=== PATIENT | male | born 1950 | race Two or more races ===

== ENCOUNTER 2017-10-01 10:07 | Inpatient (IN) | payer OTHER, MEDICAID ==
[~2017-10-01] VITALS: Ht 175.3 cm; Wt 87.9 kg
[2017-10-01] MEDS ORDERED: ASPirin 81 mg TAB PO ONE (11:15)
[2017-10-01 12:39] LABS: Basophils # (auto) 0.1 uL; Basophils % (auto) 1.4 % (0.0-2.0); Eosinophils # (auto) 0.2 uL; Eosinophils % (auto) 3.5 % (0.0-7.0); Hematocrit 31.4 % (41.0-53.0); Hemoglobin 10.4 g/dL (13.5-17.5); Lymphocytes # (auto) 1.5 uL; Lymphocytes % (auto) 23.8 % (10.0-50.0); Mean Corpuscular Hemoglobin 29.1 pg (28.0-32.0); Mean Corpuscular Hgb Conc. 33.2 g/dL (32.0-36.0); Mean Corpuscular Volume 87.8 fL (80.0-100.0); Monocytes # (auto) 0.4 uL; Monocytes % (auto) 7.2 % (0.0-12.0); Neutrophils # (auto) 3.9 uL; Neutrophils % (auto) 64.1 % (37.0-80.0); Nucleated Red Blood Cells % 0.1 %; Platelet Count (auto) 212 10^3/uL (140-450); Red Blood Cells 3.57 10^6/uL (4.5-5.90); Red Cell Distribution Width 14.2 % (11.8-14.3); White Blood Cell 6.1 10^3/uL (4.4-10.8)
[2017-10-01 12:51] LABS: INR 0.93 (0.9-1.15)
[2017-10-01 13:03] LABS: Alanine Aminotransferase 54 U/L (16-61); Albumin 3.2 g/dL (3.4-5.0); Anion Gap 11 (5-15); Aspartate Aminotransferase 47 U/L (15-37); BUN/Creatinine Ratio 10.5; Blood Urea Nitrogen 48 mg/dL (7-18); Calcium 7.5 mg/dL (8.5-10.1); Carbon Dioxide 23 mmol/L (21-32); Chloride 108 mmol/L (98-107); GFR African American 16 mL/min; GFR Non-African American 14 mL/min; Glucose 113 mg/dL (74-106); Potassium 4.3 mmol/L (3.5-5.1); Sodium 142 mmol/L (136-145)
[2017-10-01 13:08] LABS: Alkaline Phosphatase 59 U/L (45-117); Bilirubin, Total 0.3 mg/dL (0.2-1.0); Total Protein 7.3 g/dL (6.4-8.2)
[2017-10-01] MEDS ORDERED: DEXTROSE (50%) 50ML SYRG IV PRN (16:00)
[2017-10-01] MEDS ORDERED: FUROSEMIDE 20 MG TAB PO ONE (16:00)
[2017-10-01] MEDS ORDERED: POTASSIUM CHLORIDE 8 MEQ TAB PO ONE (16:00)
[2017-10-01] MEDS ORDERED: LORazepam 0.5 MG TAB PO PRN (16:15)
[2017-10-01] MEDS ORDERED: MORPHINE SULF(PF) 0.5MG/ML 10ML VIAL IV PRN ×2 (16:15)
[2017-10-01] MEDS ORDERED: ACETAMINOPHEN 325 MG TAB PO PRN (16:15)
[2017-10-01] MEDS ORDERED: ENALAPRIL MALEATE 2.5 MG TAB PO SCH (16:15)
[2017-10-01] MEDS ORDERED: ONDANSETRON HCL 4 MG/2 ML VIAL IV PRN (16:15)
[2017-10-01] MEDS ORDERED: NITROGLYCERIN 0.4 MG SL TAB SL PRN ×2 (16:15)
[2017-10-01] MEDS ORDERED: FUROSEMIDE 40 MG TAB PO ONE (16:15)
[2017-10-01] MEDS ORDERED: ALUM & MAG HYDROX-SIMETH LIQ(MAALOX) 30 ML PO ONE (16:15)
[2017-10-01] MEDS ORDERED: CLOPIDOGREL BISULFATE 75 MG TAB PO ONE (16:30)
[2017-10-01] MEDS: ACCU-CHEK COMFORT CURVE STRIP VI SCH ×2 (16:58→22:10)
[2017-10-01] MEDS: InsuLIN REG 1unit/0.01ml Soln (100units/ml) SC SCH ×2 (16:58→22:09)
[2017-10-01] MEDS: TAMSULOSIN HYDROCHLORIDE 0.4 MG CAP PO SCH (18:00)
[2017-10-01] MEDS: Boost Glucose Control 8 Ounces PO SCH (18:14)
[2017-10-01] MEDS ORDERED: cloNIDine HCL 0.1 MG TAB PO PRN (19:15)
[2017-10-01 21:00] VITALS: BP 161/83
[2017-10-01 22:00] VITALS: BP 161/83
[2017-10-01] MEDS: SODIUM CHLOR 0.9% PF (SALINE LOCK) 10ML VIAL/SYR IV SCH (22:06)
[2017-10-01] MEDS: hydrALAZINE HCL 25 MG TAB PO SCH (22:07)
[2017-10-01] MEDS: CARVEDILOL 12.5 MG TAB PO SCH (22:07)
[2017-10-01] MEDS: ENALAPRIL MALEATE 2.5 MG TAB PO SCH (22:08)
[2017-10-01] MEDS: ATORVASTATIN 20 MG TAB PO SCH (22:08)
[2017-10-01] MEDS: INSULIN LANTUS (GLARGINE) 1 /0.01ml (100units/ml) SC SCH (22:09)
[2017-10-01] MEDS ORDERED: FURO40TA PO (22:27)
[2017-10-01] MEDS ORDERED: CHOL1TAB28 PO (22:27)
[2017-10-01] MEDS ORDERED: TAMS0.4C36 PO (22:27)
[2017-10-01] MEDS ORDERED: PANT1INJ3 PO (22:27)
[2017-10-01] MEDS ORDERED: INSUINJ18 SC (22:27)
[2017-10-01] MEDS ORDERED: GABA300C PO (22:27)
[2017-10-01] MEDS ORDERED: CHOL200021 PO (22:27)
[2017-10-01] MEDS ORDERED: CAR125T PO (22:27)
[2017-10-01] MEDS ORDERED: ROSU40TA PO (22:27)
[2017-10-01] MEDS ORDERED: AML5T PO (22:27)
[2017-10-01] MEDS ORDERED: INSLANTI SC (22:27)
[2017-10-01] MEDS ORDERED: FINA5TAB4 PO (22:27)
[2017-10-01] MEDS ORDERED: HYDR25TA35 PO (22:27)
[2017-10-02 05:00] VITALS: BP 155/77
[2017-10-02] MEDS: SODIUM CHLOR 0.9% PF (SALINE LOCK) 10ML VIAL/SYR IV SCH ×3 (06:00→21:49)
[2017-10-02] MEDS: InsuLIN REG 1unit/0.01ml Soln (100units/ml) SC SCH ×4 (06:00→21:49)
[2017-10-02] MEDS: ACCU-CHEK COMFORT CURVE STRIP VI SCH ×4 (06:01→21:50)
[2017-10-02 07:04] LABS: Basophils # (auto) 0.1 uL; Eosinophils # (auto) 0.2 uL; Hematocrit 29.9 % (41.0-53.0); Hemoglobin 10.1 g/dL (13.5-17.5); Lymphocytes # (auto) 1.3 uL; Lymphocytes % (auto) 23.1 % (10.0-50.0); Mean Corpuscular Hemoglobin 29.7 pg (28.0-32.0); Mean Corpuscular Hgb Conc. 33.9 g/dL (32.0-36.0); Mean Corpuscular Volume 87.5 fL (80.0-100.0); Monocytes # (auto) 0.5 uL; Neutrophils # (auto) 3.5 uL; Neutrophils % (auto) 62.9 % (37.0-80.0); Nucleated Red Blood Cells % 0.1 %; Platelet Count (auto) 197 10^3/uL (140-450); Red Blood Cells 3.42 10^6/uL (4.5-5.90); Red Cell Distribution Width 14.8 % (11.8-14.3); White Blood Cell 5.5 10^3/uL (4.4-10.8)
[2017-10-02 07:32] LABS: BUN/Creatinine Ratio 10.7; Bilirubin, Total 0.4 mg/dL (0.2-1.0); Calcium 7.8 mg/dL (8.5-10.1); Magnesium 2.3 mg/dL (1.6-2.6); Potassium 4.1 mmol/L (3.5-5.1); Total Protein 6.8 g/dL (6.4-8.2)
[2017-10-02] MEDS ORDERED: ADENOSINE 74 MG in GIVE UN-DILUTED 0 ML IV ONE (08:45)
[2017-10-02 09:00] VITALS: BP 161/79
[2017-10-02] MEDS ORDERED: FUROSEMIDE 20 MG TAB PO SCH (10:00)
[2017-10-02] MEDS: Boost Glucose Control 8 Ounces PO SCH ×3 (12:00→18:25)
[2017-10-02] MEDS: ASPirin 81 mg TAB PO SCH (12:36)
[2017-10-02] MEDS: FUROSEMIDE 40 MG TAB PO SCH (12:36)
[2017-10-02] MEDS: ENALAPRIL MALEATE 2.5 MG TAB PO SCH ×2 (12:36→21:49)
[2017-10-02] MEDS: FINASTERIDE 5 MG TAB PO SCH (12:37)
[2017-10-02] MEDS: CLOPIDOGREL BISULFATE 75 MG TAB PO SCH (12:37)
[2017-10-02] MEDS: POTASSIUM CHLORIDE 8 MEQ TAB PO SCH (12:37)
[2017-10-02] MEDS: CARVEDILOL 12.5 MG TAB PO SCH ×2 (12:37→21:48)
[2017-10-02] MEDS: DOCUSATE SOD 100 MG CAP PO SCH (12:37)
[2017-10-02] MEDS: hydrALAZINE HCL 25 MG TAB PO SCH ×2 (12:38→21:48)
[2017-10-02] MEDS: CHOLECALCIFEROL (VITD3) 1,000 UNIT TAB PO SCH (12:38)
[2017-10-02] MEDS: PANTOPRAZOLE 40 MG TAB PO SCH (12:38)
[2017-10-02] MEDS: GABAPENTIN 300 MG CAP PO SCH (12:38)
[2017-10-02] MEDS: amLODIPine BESYLATE 5 MG TAB PO SCH (12:39)
[2017-10-02 13:00] VITALS: BP 160/77
[2017-10-02 17:00] VITALS: BP 149/70
[2017-10-02] MEDS: TAMSULOSIN HYDROCHLORIDE 0.4 MG CAP PO SCH (18:25)
[2017-10-02 19:36] LABS: Urine Bacteria NONE SEEN /hpf (None Seen); Urine Blood Negative /uL (Negative); Urine Specific Gravity 1.009 (1.001-1.035); Urine WBC 1 /hpf (0 - 3)
[2017-10-02 21:48] VITALS: BP 149/74
[2017-10-02] MEDS: ZOLPIDEM TARTRATE 5 MG TAB PO PRN (21:48)
[2017-10-02] MEDS: ATORVASTATIN 20 MG TAB PO SCH (21:48)
[2017-10-02] MEDS: INSULIN LANTUS (GLARGINE) 1 /0.01ml (100units/ml) SC SCH (21:49)
[2017-10-03 05:36] VITALS: BP 155/76
[2017-10-03] MEDS: SODIUM CHLOR 0.9% PF (SALINE LOCK) 10ML VIAL/SYR IV SCH ×3 (05:51→22:05)
[2017-10-03] MEDS: InsuLIN REG 1unit/0.01ml Soln (100units/ml) SC SCH ×4 (05:51→22:28)
[2017-10-03] MEDS: ACCU-CHEK COMFORT CURVE STRIP VI SCH ×4 (05:51→22:29)
[2017-10-03 08:00] VITALS: BP 177/78
[2017-10-03] MEDS: Boost Glucose Control 8 Ounces PO SCH ×3 (08:00→18:00)
[2017-10-03] MEDS: DOCUSATE SOD 100 MG CAP PO SCH (09:23)
[2017-10-03] MEDS: CLOPIDOGREL BISULFATE 75 MG TAB PO SCH (09:23)
[2017-10-03] MEDS: POTASSIUM CHLORIDE 8 MEQ TAB PO SCH (09:23)
[2017-10-03] MEDS: ASPirin 81 mg TAB PO SCH (09:23)
[2017-10-03] MEDS: GABAPENTIN 300 MG CAP PO SCH (09:24)
[2017-10-03] MEDS: FUROSEMIDE 40 MG TAB PO SCH (09:24)
[2017-10-03] MEDS: PANTOPRAZOLE 40 MG TAB PO SCH (09:24)
[2017-10-03] MEDS: CHOLECALCIFEROL (VITD3) 1,000 UNIT TAB PO SCH (09:24)
[2017-10-03] MEDS: ENALAPRIL MALEATE 2.5 MG TAB PO SCH (09:25)
[2017-10-03] MEDS: amLODIPine BESYLATE 5 MG TAB PO SCH (09:25)
[2017-10-03] MEDS: CARVEDILOL 12.5 MG TAB PO SCH ×2 (09:25→21:39)
[2017-10-03] MEDS: hydrALAZINE HCL 25 MG TAB PO SCH ×3 (09:26→21:39)
[2017-10-03] MEDS: FINASTERIDE 5 MG TAB PO SCH (09:26)
[2017-10-03 12:00] VITALS: BP 151/69
[2017-10-03 17:00] VITALS: BP 153/78
[2017-10-03] MEDS: TAMSULOSIN HYDROCHLORIDE 0.4 MG CAP PO SCH (17:25)
[2017-10-03] MEDS: ATORVASTATIN 20 MG TAB PO SCH (21:39)
[2017-10-03 22:00] VITALS: BP 163/78
[2017-10-03] MEDS: ZOLPIDEM TARTRATE 5 MG TAB PO PRN (22:08)
[2017-10-03] MEDS: INSULIN LANTUS (GLARGINE) 1 /0.01ml (100units/ml) SC SCH (22:29)
[2017-10-04] MEDS: SODIUM CHLOR 0.9% PF (SALINE LOCK) 10ML VIAL/SYR IV SCH ×2 (05:40→14:00)
[2017-10-04] MEDS: hydrALAZINE HCL 25 MG TAB PO SCH ×2 (05:42→15:07)
[2017-10-04] MEDS: ACCU-CHEK COMFORT CURVE STRIP VI SCH ×3 (05:47→17:00)
[2017-10-04] MEDS: InsuLIN REG 1unit/0.01ml Soln (100units/ml) SC SCH ×3 (05:47→17:00)
[2017-10-04 05:51] VITALS: BP 137/67
[2017-10-04 08:00] VITALS: BP 143/70
[2017-10-04] MEDS: Boost Glucose Control 8 Ounces PO SCH ×2 (08:00→12:00)
[2017-10-04 08:43] VITALS: BP 143/70
[2017-10-04] MEDS: CARVEDILOL 12.5 MG TAB PO SCH (09:35)
[2017-10-04] MEDS: GABAPENTIN 300 MG CAP PO SCH (09:35)
[2017-10-04] MEDS: DOCUSATE SOD 100 MG CAP PO SCH (09:35)
[2017-10-04] MEDS: PANTOPRAZOLE 40 MG TAB PO SCH (09:35)
[2017-10-04] MEDS: CLOPIDOGREL BISULFATE 75 MG TAB PO SCH (09:35)
[2017-10-04] MEDS: POTASSIUM CHLORIDE 8 MEQ TAB PO SCH (09:36)
[2017-10-04] MEDS: FINASTERIDE 5 MG TAB PO SCH (09:36)
[2017-10-04] MEDS: amLODIPine BESYLATE 5 MG TAB PO SCH (09:36)
[2017-10-04] MEDS: FUROSEMIDE 40 MG TAB PO SCH (09:36)
[2017-10-04] MEDS: ASPirin 81 mg TAB PO SCH (09:36)
[2017-10-04] MEDS: CHOLECALCIFEROL (VITD3) 1,000 UNIT TAB PO SCH (09:36)
[2017-10-04 13:00] VITALS: BP 142/72
[2017-10-04 15:47] VITALS: BP 142/72
[2017-10-04 16:17] VITALS: BP 139/79
[2017-10-04] MEDS ORDERED: TAMSULOSIN HYDROCHLORIDE 0.4 MG CAP PO SCH (18:00)
== END 2017-10-04 17:15 | disposition home or self-care (01) | DRG 291 ==
LOC: ER 10:07 → TELE 10:08 → TELE-CENTR 19:54
PROVIDERS: ADMIT Internal Medicine; ATTEND Internal Medicine Pulmonary Disease
DX: I13.2 Hypertensive heart and chronic kidney disease with heart failure and with stage 5 chronic kidney disease, or end stage renal disease (principal); I50.43 Acute on chronic combined systolic (congestive) and diastolic (congestive) heart failure; I24.9 Acute ischemic heart disease, unspecified; E44.0 Moderate protein-calorie malnutrition; N18.5 Chronic kidney disease, stage 5; J98.11 Atelectasis; N13.8 Other obstructive and reflux uropathy; R65.10 Systemic inflammatory response syndrome (SIRS) of non-infectious origin without acute organ dysfunction; E83.51 Hypocalcemia; N40.1 Benign prostatic hyperplasia with lower urinary tract symptoms; I25.10 Atherosclerotic heart disease of native coronary artery without angina pectoris; D63.8 Anemia in other chronic diseases classified elsewhere; E11.21 Type 2 diabetes mellitus with diabetic nephropathy; E11.22 Type 2 diabetes mellitus with diabetic chronic kidney disease; I25.2 Old myocardial infarction; Z82.49 Family history of ischemic heart disease and other diseases of the circulatory system; Z83.3 Family history of diabetes mellitus; Z90.49 Acquired absence of other specified parts of digestive tract; Z88.5 Allergy status to narcotic agent; Z88.2 Allergy status to sulfonamides; Z79.4 Long term (current) use of insulin; Z79.899 Other long term (current) drug therapy; Z68.28 Body mass index [BMI] 28.0-28.9, adult
CPT/HCPCS: 36415; 71046; 76775; 78452; 80053; 80061; 81001; 82962; 83036; 83735; 83880; 84443; 84484; 85025; 85610; 85730; 93005; 93017; 93306; J0153; J1815

== ENCOUNTER 2018-08-31 20:43 | Emergency (ER) | payer OTHER, MEDICAID ==
[~2018-08-31] VITALS: Ht 182.9 cm; Wt 113.4 kg
[~2018-08-31 20:43] MED LIST: AML5T PO; CAR125T PO; CHOL1TAB28 PO; CHOL200021 PO; FINA5TAB4 PO; FURO40TA PO; GABA300C PO; HYDR-4296 PO; INSLANTI SC; INSUINJ18 SC; PANT1INJ3 PO; ROSU40TA PO; TAMS0.4C36 PO
[2018-08-31] MEDS ORDERED: SODIUM CHLORIDE 0.9% 250 ML IV ONE (21:21)
[2018-08-31 21:47] LABS: Basophils # (auto) 0.1 uL; Basophils % (auto) 0.7 % (0.0-2.0); Eosinophils # (auto) 0.1 uL; Eosinophils % (auto) 0.7 % (0.0-7.0); Hematocrit 33.9 % (41.0-53.0); Hemoglobin 11.2 g/dL (13.5-17.5); Lymphocytes # (auto) 0.8 uL; Mean Corpuscular Hemoglobin 32.3 pg (28.0-32.0); Mean Corpuscular Volume 97.9 fL (80.0-100.0); Monocytes # (auto) 0.4 uL; Monocytes % (auto) 3.9 % (0.0-12.0); Neutrophils # (auto) 7.9 uL; Neutrophils % (auto) 85.7 % (37.0-80.0); Platelet Count (auto) 209 10^3/uL (140-450); Red Blood Cells 3.46 10^6/uL (4.5-5.90); Red Cell Distribution Width 13.6 % (11.8-14.3); White Blood Cell 9.2 10^3/uL (4.4-10.8)
[2018-08-31 22:06] LABS: Anion Gap 12 (5-15); Blood Urea Nitrogen 56 mg/dL (7-18); Calcium 8.8 mg/dL (8.5-10.1); Carbon Dioxide 24 mmol/L (21-32); Chloride 103 mmol/L (98-107); Glucose 199 mg/dL (74-106); Potassium 4.1 mmol/L (3.5-5.1); Sodium 139 mmol/L (136-145)
[2018-08-31 22:09] LABS: Alanine Aminotransferase 22 U/L (16-61); Aspartate Aminotransferase 21 U/L (15-37); BUN/Creatinine Ratio 8.6; GFR African American 11 mL/min; GFR Non-African American 9 mL/min
[2018-08-31 22:13] LABS: Alkaline Phosphatase 65 U/L (45-117); Bilirubin, Total 0.3 mg/dL (0.2-1.0); Total Protein 8.8 g/dL (6.4-8.2)
[2018-08-31 23:43] VITALS: BP 194/91
[2018-09-01] MEDS ORDERED: LACTULOSE 20Gm/30ML SOLN PO ONE
[2018-09-01] MEDS ORDERED: cloNIDine 0.1 mg/24hr 7 DAY PATCH TD ONE
[2018-09-01] MEDS ORDERED: cloNIDine HCL 0.1 MG TAB PO ONE ×2 (00:15→01:30)
== END 2018-09-01 01:38 | disposition home or self-care (01) ==
LOC: ER 20:43 → EDBD 20:43 → ER 09-01 01:38
DX: E16.2 Hypoglycemia, unspecified (principal); N28.9 Disorder of kidney and ureter, unspecified; E11.22 Type 2 diabetes mellitus with diabetic chronic kidney disease; I13.2 Hypertensive heart and chronic kidney disease with heart failure and with stage 5 chronic kidney disease, or end stage renal disease; N18.6 End stage renal disease; I50.9 Heart failure, unspecified; I25.10 Atherosclerotic heart disease of native coronary artery without angina pectoris; Z99.2 Dependence on renal dialysis; Z88.5 Allergy status to narcotic agent; Z88.2 Allergy status to sulfonamides; Z79.4 Long term (current) use of insulin; Z90.49 Acquired absence of other specified parts of digestive tract
CPT/HCPCS: 36415; 70450; 71045; 80053; 82140; 82962; 83880; 84484; 85025; 94761; 96360; 99284; J7050

== ENCOUNTER 2024-03-06 19:55 | Inpatient (IN) | payer MEDICAID, OTHER ==
[~2024-03-06] VITALS: Ht 175.3 cm; Wt 74.6 kg
[~2024-03-06 19:55] MED LIST changes: +FURO1TAB31 PO; -FURO40TA PO; -HYDR-4296 PO; +HYDR25TA88 PO; -ROSU40TA PO; +ROSU40TA81 PO; -TAMS0.4C36 PO; +TAMS0.4C39 PO
[2024-03-06 20:15] VITALS: PULSE 74; RESP 14; O2SAT 96
[2024-03-06] MEDS: ACETAMINOPHEN 500 MG TAB PO ONE (20:15)
[2024-03-06] MEDS: SODIUM CHLORIDE 0.9% 1,000 ML IVB ONE (20:15)
[2024-03-06] MEDS: cefTRIAXone 1GM/50ML D5W 50 ML IV ONE (20:15)
--- NOTE | 2024-03-06 20:22 | ED.PDOC ---
General HPI Comments 73-year-old male who came to ER via EMS for urinary problems. Patient does have history of hypertension, diabetes, end-stage renal disease, on dialysis every Sunday and Sunday. He does have a suprapubic catheter inserted nearly a year ago due to prostatic enlargement. Does have history of recurrent UTIs. For the past few days, patient has been complaining of suprapubic pain, near the suprapubic catheter insertion site. No fever noted. No nausea or vomiting. No flank pains. Patient said that he might be having another UTI. Chief Complaint: Urinary Time Seen by MD: 20:18 Primary Care Provider: UNKNOWN Reviewed notes: Nurses Notes, [employer] As[employer]er Notes Allergies: Coded Allergies: Codeine (Verified Allergy, Unknown, 03/06/24) upset stomach/rash Sulfa Antibiotics (Verified Allergy, Unknown, 10/01/17) Home Meds Reported Medications Insulin Aspart Protamine & Asp (Novolog Mix 70/30 Prefill (70-30) 100 Unit/ml) 1 Inj Inj, 8 UNITS SC, INJ 10/01/17 Insulin Glargine (Lantus) 100 Unit/Ml Inj, 50 UNIT SC QHS, INJ 10/01/17 Furosemide (Lasix) 40 Mg Tab, 40 MG PO DAILY, TAB 10/01/17 Hydralazine Hcl (Hydralazine Hcl) 25 Mg Tab, 25 MG PO BID for 30 Days, MG 10/01/17 Pantoprazole Sodium (PANTOPRAZOLE SODIUM) 40 Mg Inj, 40 MG PO DAILY, INJ 10/01/17 Rosuvastatin Calcium (Crestor) 40 Mg Tab, 1 TAB PO DAILY, #30 TAB 5 Refills 10/01/17 Cholecalciferol (D3 2000) 2,000 Unit Tab, 2000 UNIT PO DAILY, TAB 10/01/17 Cholecalciferol (D3) 2,000 Unit Tab, 2000 UNIT PO, TAB 10/01/17 Finasteride (Finasteride) 5 Mg Tab, 5 MG PO DAILY for 30 Days, MG 10/01/17 Tamsulosin Hcl (Tamsulosin Hcl) 0.4 Mg Cap, 0.8 MG PO QPM for 30 Days, MG 10/01/17 Gabapentin (Neurontin) 300 Mg Cap, 1 CAP PO TID, #90 CAP 3 Refills 10/01/17 Carvedilol (Coreg) 12.5 Mg Tab, 1 TAB PO BID, #180 TAB 1 Refill 10/01/17 Amlodipine Besylate (NORVASC TABLET) 5 Mg Tb, 2 TAB PO DAILY, #30 TAB 5 Refills 10/01/17 Information Source: Patient, Emergency Med Personnel Mode of Arrival: EMS Inability to void: None Timing: Days Duration: Intermittent Has not urinated for: Minutes Onset: Spontaneous Symptoms: Other (Abdominal pain) History of: UTI, Suprapubic catheter Location: Suprapubic associated signs and symptoms: Abdominal Pain Past Medical History PAST MEDICAL HISTORY: Anemia, CAD, CHF, DM, ESRD, HTN Past Medical History (Other): Prostatic hypertrophy Surgical History: Appendectomy, Cholecystectomy Surgical History (Other): Dialysis Sunday Family History Family History: Reviewed,noncontributory to illness Social History Smoker: Non-Smoker Alcohol: Denies ETOH Use Drugs: Denies Drug Use Lives In: Home Constitutional: denies: chills, diaphoresis, fatigue, fever, malaise, sweats, weakness, others EENTM: denies: blurred vision, double vision, ear bleeding, ear discharge, ear drainage, ear pain, ear ringing, eye pain, eye redness, hearing loss, mouth pain, mouth swelling, nasal discharge, nose bleeding, nose congestion, nose pain, photophobia, tearing, throat pain, throat swelling, voice changes, others Respiratory: denies: cough, hemoptysis, orthopnea, SOB at rest, shortness of breath, SOB with excertion, stridor, wheezing, others Cardiovascular: denies: chest pain, dizzy spells, diaphoresis, Dyspnea on exertion, edema, irregular heart beat, left arm pain, lightheadedness, palpitations, PND, syncope, others Gastrointestinal: reports: abdominal pain; denies: abdomen distended, blood streaked bowels, constipated, diarrhea, dysphagia, difficulty swallowing, hematemesis, melena, nausea, poor appetite, poor fluid intake, rectal bleeding, rectal pain, vomiting, others Genitourinary: denies: burning, dysuria, flank pain, frequency, hematuria, incontinence, penile discharge, penile sore, pain, testicle pain, testicle swelling, urgency, others Neurological: denies: dizziness, fainting, headache, left sided numbness, left sided weakness, numbness, paresthesia, pre-existing deficit, right sided numbness, right sided weakness, seizure, speech problems, tingling, tremors, weakness, others Musculoskeletal: denies: back pain, gout, joint pain, joint swelling, muscle pain, muscle stiffness, neck pain, others Integumetry: denies: bruises, change in color, change in hair/nails, dryness, laceration, lesions, lumps, rash, wounds, others Allergic/Immunocompromised: denies: Difficulty Healing, Frequent Infections, Hives, Itching, others Hematologic/Lymphatic: denies: anemia, blood clots, easy bleeding, easy bruising, swollen glands, others Endocrine: denies: excessive hunger, excessive sweating, excessive thirst, excessive urination, flushing, intolerance to cold, intolerance to heat, unexplained weight gain, unexplained weight loss, others Psychiatric: denies: anxiety, bipolar disorder, depression, hopeless, panic disorder, schizophrenia, sleepless, suicidal, others Physical Exam General Appearance: No Apparent Distress, Normal HEENT: Normal ENT Inspection, Pharynx Normal, TMs Normal Neck: Full Range of Motion, Non-Tender, Normal, Normal Inspection Respiratory: Chest Non-Tender, Lungs Clear, No Accessory Muscle Use, No Respiratory Distress, Normal Breath Sounds Cardiovascular: No Edema, No JVD, No Murmur, No Gallop, Normal Peripheral Pulses, Regular Rate/Rhythm Breast Exam: Deferred Gastrointestinal: No Organomegaly, Non Tender, No Pulsatile Mass, Normal Bowel Sounds, Soft Genitalia: Deferred Pelvic: Deferred Rectal: Deferred Extremities: No calf tenderness, Normal capillary refill, Normal inspection, Normal range of motion, Non-tender, No pedal edema Musculoskeletal : Apperance: Normal Neurologic: Alert, painter ordnance II-XII nml as Tested, No Motor Deficits, Normal Affect, Normal Mood, No Sensory Deficits Cerebellar Function: Normal Reflexes: Normal Skin: Dry, Normal Color, Warm Lymphatic: No Adenopathy Was a procedure done? Was a procedure done?: No Differential Diagnosis Kidney stone (Female): N/A Kidney stone (Male): Pyelonephritis, Renal failure, Strain, Urinary obstruction, Urolithiasis, Renal infarction, Urinary tract infection Urinary Problem (Male): Prostatitis, Post op Complications, Urethritis, Urolithiasis, UTI X-Ray, Labs, Meds, VS Vital Signs Date Time Temp Pulse Resp B/P (MAP) Pulse Ox O2 Delivery O2 Flow Rate FiO2 03/06/24 22:15 99.2 03/06/24 20:21 99.7 114 14 123/67 (85) 95 03/06/24 20:15 99.9 Lab Test 03/06/24 20:30 Range/Units White Blood Count 8.8 4.4-10.8 10^3/uL Red Blood Count 3.86 L 4.5-5.90 10^6/uL Hemoglobin 12.3 L 13.5-17.5 g/dL Hematocrit 37.2 L 41.0-53.0 % Mean Corpuscular Volume 96.4 80.0-100.0 fL Mean Corpuscular Hemoglobin 31.9 28.0-32.0 pg Mean Corpuscular Hemoglobin Concent 33.1 32.0-36.0 g/dL Red Cell Distribution Width 13.8 11.8-14.3 % Platelet Count 219 140-450 10^3/uL Mean Platelet Volume 7.1 6.9-10.8 fL Neutrophils (%) (Auto) 79.5 37.0-80.0 % Lymphocytes (%) (Auto) 10.9 10.0-50.0 % Monocytes (%) (Auto) 8.4 0.0-12.0 % Eosinophils (%) (Auto) 0.4 0.0-7.0 % Basophils (%) (Auto) 0.8 0.0-2.0 % Neutrophils # (Auto) 7.0 1.6-8.6 10 ^3/uL Lymphocytes # (Auto) 1.0 0.4-5.4 10 ^3/uL Monocytes # (Auto) 0.7 0-1.3 10 ^3/uL Eosinophils # (Auto) 0 0-0.8 10 ^3/uL Basophils # (Auto) 0.1 0-0.2 10 ^3/uL Nucleated Red Blood Cells 0.0 % Sodium Level 136 136-145 mmol/L Potassium Level 4.1 3.5-5.1 mmol/L Chloride Level 96 L 98-107 mmol/L Carbon Dioxide Level 30 20-31 mmol/L Anion Gap 10 5-15 Blood Urea Nitrogen 38 H 9-23 mg/dL Creatinine 7.48 H 0.700-1.30 mg/dL Glomerular Filtration Rate Calc 7 >90 mL/min BUN/Creatinine Ratio 5.1 L 10.0-20.0 Serum Glucose 165 H 74-106 mg/dL Lactic Acid Level 1.4 0.4-2.0 mmol/L Calcium Level 9.3 8.7-10.4 mg/dL Total Bilirubin 0.5 0.2-1.0 mg/dL Aspartate Amino Transferase (AST) 15 13-40 U/L Alanine Aminotransferase (ALT) 13 7-40 U/L Alkaline Phosphatase 128 H 46-116 U/L Total Protein 8.5 H 5.7-8.2 g/dL Albumin 4.6 3.2-4.8 g/dL Current Medications Medications (Trade) Dose Ordered Sig/Pia Route Start Time Stop Time Status Last Admin Sodium Chloride 1,000 ml @ 1,000 mls/hr Q1H ONCE IVB 03/06/24 20:15 03/06/24 21:14 DC 03/06/24 20:15 Acetaminophen (Tylenol Tablet) 1,000 mg ONCE ONCE PO 03/06/24 20:15 03/06/24 20:16 DC 03/06/24 20:15 Ceftriaxone Sodium 50 ml @ 100 mls/hr ONCE ONCE IV 03/06/24 20:15 03/06/24 20:44 DC 03/06/24 20:15 Exam: CT CT AB PEL WO CON-NO ORAL OR IV Findings: Lungs: The lung bases are clear. Heart: The visualized heart is unremarkable. No cardiomegaly or pericardial effusion. Severe coronary atherosclerosis versus stents. Liver: Unremarkable. Gallbladder: Cholecystectomy. Spleen: Unremarkable Pancreas: Unremarkable Adrenals: Unremarkable Kidneys: Bilateral renal atrophy. GI tract: Unremarkable. Moderate fecal burden. : Urinary bladder is decompressed via suprapubic catheter. Vasculature: Mild aortoiliac atherosclerosis. Lymphadenopathy: Absent Peritoneum: No ascites Musculoskeletal: Mild multilevel degenerative changes of the thoracolumbar spine. Left total hip arthroplasty. Soft tissues: Unremarkable Impression: 1. No acute abdominopelvic abnormalities. 2. Moderate fecal burden. 3. Urinary bladder is decompressed via suprapubic catheter. Time of 1ST Reevaluation: 20:13 Reevaluation 1ST: Unchanged Patient Education/Counseling: Diagnosis, Treatment Family Education/Counseling: No Family Present Departure 1 Departure Time of Disposition: 22:00 Impression: Primary Impression: UTI (urinary tract infection) due to urinary indwelling catheter Additional Impression: Pyelonephritis Disposition: ADMITTED INPATIENT Admit to: Med Surg Condition: Stable Critical Care Note Critical Care Time?: No Stability Stability form required: No Heart Score Heart Score: Heart Score Response (Comments) Value History N/A 0 EKG N/A 0 Age N/A 0 Risk Factors N/A 0 Troponin N/A 0 Total 0 I personally scribed for JAMEY GARBER MD ([email or web address]) on 03/06/24 at 20:22. Electronically submitted by Cas Schofield ([email or web address]). I personally scribed for JAMEY GARBER MD ([email or web address]) on 03/06/24 at 21:40. Electronically submitted by Cas Schofield ([email or web address]). JAMEY GARBER MD Mar 06, 2024 20:22
[2024-03-06 20:41] LABS: Basophils # (auto) 0.1 10 ^3/uL (0-0.2); Basophils % (auto) 0.8 % (0.0-2.0); Eosinophils # (auto) 0 10 ^3/uL (0-0.8); Eosinophils % (auto) 0.4 % (0.0-7.0); Hematocrit 37.2 % (41.0-53.0); Hemoglobin 12.3 g/dL (13.5-17.5); Lymphocytes % (auto) 10.9 % (10.0-50.0); Mean Corpuscular Hemoglobin 31.9 pg (28.0-32.0); Mean Corpuscular Hgb Conc. 33.1 g/dL (32.0-36.0); Mean Corpuscular Volume 96.4 fL (80.0-100.0); Monocytes # (auto) 0.7 10 ^3/uL (0-1.3); Monocytes % (auto) 8.4 % (0.0-12.0); Neutrophils % (auto) 79.5 % (37.0-80.0); Platelet Count (auto) 219 10^3/uL (140-450); Red Blood Cells 3.86 10^6/uL (4.5-5.90); Red Cell Distribution Width 13.8 % (11.8-14.3); White Blood Cell 8.8 10^3/uL (4.4-10.8)
[2024-03-06 20:56] LABS: Alanine Aminotransferase 13 U/L (7-40); Albumin 4.6 g/dL (3.2-4.8); Alkaline Phosphatase 128 U/L (46-116); Anion Gap 10 (5-15); Aspartate Aminotransferase 15 U/L (13-40); BUN/Creatinine Ratio 5.1 (10.0-20.0); Bilirubin, Total 0.5 mg/dL (0.2-1.0); Blood Urea Nitrogen 38 mg/dL (9-23); Calcium 9.3 mg/dL (8.7-10.4); Carbon Dioxide 30 mmol/L (20-31); Chloride 96 mmol/L (98-107); Glucose 165 mg/dL (74-106); Potassium 4.1 mmol/L (3.5-5.1); Sodium 136 mmol/L (136-145); Total Protein 8.5 g/dL (5.7-8.2)
--- NOTE | 2024-03-06 21:30 | DVH ---
Exam: CT CT AB PEL WO CON-NO ORAL OR IV History: renal disease, low abd pain, fever, suprapubic cath Comparison Study: None TECHNIQUE: Multidetector CT of the abdomen and pelvis was performed from lung bases to pubic symphysi s. Imaging was performed without IV contrast. Axial, coronal, and sagittal multiplanar reformats were obtained from the axial data set by the technologist. RADIATION DOSE: DLP 902.66 mGy.cm; CTDI vol 14.86 mGy. Findings: Lungs: The lung bases are clear. Heart: The visualized heart is unremarkable. No cardiomegaly or pericardial effusion. Severe coronary atherosclerosis versus stents. Liver: Unremarkable. Gallbladder: Cholecystectomy. Spleen: Unremarkable Pancreas: Unremarkable Adrenals: Unremarkable Kidneys: Bilateral renal atrophy. GI tract: Unremarkable. Moderate fecal burden. : Urinary bladder is decompressed via suprapubic catheter. Vasculature: Mild aortoiliac atherosclerosis. Lymphadenopathy: Absent Peritoneum: No ascites Musculoskeletal: Mild multilevel degenerative changes of the thoracolumbar spine. Left total hip arth roplasty. Soft tissues: Unremarkable Impression: 1. No acute abdominopelvic abnormalities. 2. Moderate fecal burden. 3. Urinary bladder is decompressed via suprapubic catheter.
--- NOTE | 2024-03-06 22:37 | DVHHPRES ---
History of Present Illness Resident Creating Document: LALI SANCHEZ RESIDENT History of Present Illness Patient is 73 years old male with past medical history of hypertension, diabetes mellitus type 2, ESRD on hemodialysis Sunday//Sunday it 3 times a week, anemia of chronic disease, history of recurrent UTI, BEP on suprapubic catheter for last 1 year came with a complaint of suprapubic pain for last 2 days. Patient reported having pain in the suprapubic region for 2 days, crampy, intermittent in nature, 7/10, no radiation. Patient also reported having constipation for last 3 days. Patient denied any fever, acute joint pain or swelling, chest pain or shortness of breath, dysarthria, dizziness, palpitation. Patient is seen in went to [facility] changes suprapubic catheter on February 25. Initial lab workup revealed serum creatinine 7.48, GFR 7, serum glucose 165, alkaline phosphatase 128. Urinalysis revealed leukocyte esterase 3+, WBC 133, , RBC 92, bacteria many. Other blood work was nonsignificant. CT scan of the abdomen revealed moderate fecal burden, urinary bladder decompressed by the suprapubic catheter. Past Medical History hypertension, diabetes mellitus type 2, ESRD on hemodialysis Sunday//Sunday it 3 times a week, anemia of chronic disease, history of recurrent UTI, BEP on suprapubic catheter for last 1 year Past Surgical History Placement of suprapubic catheter 1 year before Past Social History Patient lives alone, denies alcoholism or/smoking/drug abuse, lives alone in his RV house Review of Systems Review of Systems Allergy-codeine, sulfa antibiotic Patient was seen today at the bedside. Patient suprapubic pain Cardiovascular- deny acute chest pain or shortness of breath or cough or pal pitation Respiratory- denies cough or short of breath or wheezing Gastrointestinal- denies any rectal bleeding, nausea or vomiting Musculoskeletal-denies acute joint swelling or tenderness or redness Neurological- denies acute dysarthria, dysphagia, change in vision Psychiatry- denies depression or SI or HI Skin- denies acute rash or purpura Allergies: Coded Allergies: Codeine (Verified Allergy, Unknown, 03/06/24) upset stomach/rash Sulfa Antibiotics (Verified Allergy, Unknown, 10/01/17) Exam Vital Signs Vital Signs Date Time Temp Pulse Resp B/P (MAP) Pulse Ox O2 Delivery O2 Flow Rate FiO2 03/06/24 20:21 99.7 114 14 123/67 (85) 95 Exam General examination- awake, alert, oriented HEENT- PEERLA, no acute nasal discharge Cardiovascular- S1-S2 audible, rate and rhythm regular, no murmur Respiratory- CTAB, no wheeze or rhonchi Abdomen-suprapubic tenderness++, suprapubic catheter, bowel sound+. Nondistended Musculoskeletal-no acute joint swelling or tenderness or redness# Lower extremity- no leg edema Neurological- cranial nerves intact, no acute dysarthria or dysphagia Psychiatry- denies depression or SI or HI Skin- no acute rash or purpura Labs/Xrays Labs Test 03/06/24 20:30 Range/Units White Blood Count 8.8 4.4-10.8 10^3/uL Red Blood Count 3.86 L 4.5-5.90 10^6/uL Hemoglobin 12.3 L 13.5-17.5 g/dL Hematocrit 37.2 L 41.0-53.0 % Mean Corpuscular Volume 96.4 80.0-100.0 fL Mean Corpuscular Hemoglobin 31.9 28.0-32.0 pg Mean Corpuscular Hemoglobin Concent 33.1 32.0-36.0 g/dL Red Cell Distribution Width 13.8 11.8-14.3 % Platelet Count 219 140-450 10^3/uL Mean Platelet Volume 7.1 6.9-10.8 fL Neutrophils (%) (Auto) 79.5 37.0-80.0 % Lymphocytes (%) (Auto) 10.9 10.0-50.0 % Monocytes (%) (Auto) 8.4 0.0-12.0 % Eosinophils (%) (Auto) 0.4 0.0-7.0 % Basophils (%) (Auto) 0.8 0.0-2.0 % Neutrophils # (Auto) 7.0 1.6-8.6 10 ^3/uL Lymphocytes # (Auto) 1.0 0.4-5.4 10 ^3/uL Monocytes # (Auto) 0.7 0-1.3 10 ^3/uL Eosinophils # (Auto) 0 0-0.8 10 ^3/uL Basophils # (Auto) 0.1 0-0.2 10 ^3/uL Nucleated Red Blood Cells 0.0 % Sodium Level 136 136-145 mmol/L Potassium Level 4.1 3.5-5.1 mmol/L Chloride Level 96 L 98-107 mmol/L Carbon Dioxide Level 30 20-31 mmol/L Anion Gap 10 5-15 Blood Urea Nitrogen 38 H 9-23 mg/dL Creatinine 7.48 H 0.700-1.30 mg/dL Glomerular Filtration Rate Calc 7 >90 mL/min BUN/Creatinine Ratio 5.1 L 10.0-20.0 Serum Glucose 165 H 74-106 mg/dL Lactic Acid Level 1.4 0.4-2.0 mmol/L Calcium Level 9.3 8.7-10.4 mg/dL Total Bilirubin 0.5 0.2-1.0 mg/dL Aspartate Amino Transferase (AST) 15 13-40 U/L Alanine Aminotransferase (ALT) 13 7-40 U/L Alkaline Phosphatase 128 H 46-116 U/L Total Protein 8.5 H 5.7-8.2 g/dL Albumin 4.6 3.2-4.8 g/dL Assessment/Plan Assessment/Plan # suprapubic pain likely due to UTI -patient's history of recurrent UTI -patient with a suprapubic catheter for last 1 year -catheter was recently changed at [facility] on February 25 -serum creatinine 7.48, GFR 7, serum glucose 165, alkaline phosphatase 128. -Urinalysis revealed leukocyte esterase 3+, WBC 133, , RBC 92, bacteria many. - . CT scan of the abdomen revealed moderate fecal burden, urinary bladder decompressed by the suprapubic catheter. -continue ceftriaxone 1 g IV daily -pending uterine culture #Suprapubic pain likely due to UTI -patient's history of recurrent UTI -patient with a suprapubic catheter for last 1 year -Urinalysis revealed leukocyte esterase 3+, WBC 133, , RBC 92, bacteria many. -continue ceftriaxone 1 g IV daily -pending uterine culture # ESRD, on hemodialysis 3 times a week, Sunday//Sunday --serum creatinine 7.48, GFR 7, -continue hemodialysis as per schedule #Hypertention -continue amlodipine 10 mg p.o. daily -continue hydralazine 25 mg p.o. b.i.d. -continue hydralazine 10 mg q.6h p.r.n. -continue Lasix 40 mg p.o. daily #DM2 -c/w insulin sliding scale -monitor blood sugar # BPH -continue with the suprapubic catheter -continue Flomax 0.4 mg p.o. q.d. -continue finasteride 5 mg p.o. daily Goals of care/advance care planning; FULL CODE; discussed with the patient >15 minutes PUD prophylaxis: Pantoprazole DVT prophylaxis: Heparin 5000 units subcutaneously b.i.d. Plan discussed with Dr. Bashir, nursing staff, patient Total time spent on patient evaluation, chart review, assessment and plan, discussion discussion >30 minutes Plan discussed with: Patient Plan discussed with: Patient, Other (RN) My Orders Orders - LALI SANCHEZ RESIDENT Procedure Category Date Status Time Admit ADMIT 03/06/24 Transmitted 22:31 Code Status CODE 03/06/24 Transmitted 22:31 Renal DIET 03/07/24 Transmitted Standard(2gna,3gk,Lopho) Breakfast Sodium Chloride Lock PHA 03/07/24 Transmitted (Saline Lock Ns) 06:00 Ondansetron Hcl PHA 03/06/24 Transmitted (Zofran) 22:45 Docusate Sodium PHA 03/06/24 Transmitted Capsule (Colace 22:45 Complete Blood Count LAB 03/07/24 Verified 04:00 Comprehensive LAB 03/07/24 Verified Metabolic Panel 04:00 Cardiac DIET 03/07/24 Transmitted Diet-2gna,Lofat,Lochol Breakfast Acetaminophen Tablet PHA 03/06/24 Transmitted (Tylenol Tablet) 22:45 Nitroglycerin PHA 03/06/24 Transmitted Sublingual (Ntrostat 22:45 Morphine Sulfate PHA 03/06/24 Transmitted Injection 22:45 Oxygen By Nasal RT 03/06/24 Transmitted Cannula 22:31 Stat Ekg For Chest [facility] 03/06/24 Transmitted Pain 22:31 Notify Md Of Changes [facility] 03/06/24 Verified From Base 22:31 House Nurse For [facility] 03/06/24 Verified 24 Hours 22:31 Emergency Dysrhythmia [facility] 03/06/24 Verified Protocol 22:31 Rhythm Strips Once [facility] 03/06/24 Verified Every Shift 22:31 Date of Service: Mar 06, 2024 Billing Provider: MAXIMUS BASHIR MD Common Visit Codes: 15216-SCBUZBX INP/OBS CARE (HIGH) Secondary Visit Codes: [id number] CARE PLAN 30 MINUTES LALI SANCHEZ Mar 06, 2024 22:37 MAXIMUS BASHIR MD Mar 08, 2024 08:23
[2024-03-06] MEDS ORDERED: ONDANSETRON HCL 4 MG/2 ML VIAL IV PRN (22:45)
[2024-03-06] MEDS ORDERED: MORPHINE SULFATE INJ 2 MG/ml SYRG IV PRN (22:45)
[2024-03-06] MEDS ORDERED: DOCUSATE SOD 100 MG CAP PO PRN (22:45)
[2024-03-06] MEDS ORDERED: NITROGLYCERIN 0.4 MG SL TAB SL PRN (22:45)
[2024-03-07 01:03] LABS: Urine Bacteria MANY /hpf (None Seen); Urine Blood 2+ /uL (Negative); Urine Budding Yeast MODERATE /hpf (None Seen); Urine Clarity Ex.Turbid (Clear); Urine Color Orange (Yellow); Urine Mucus MANY (None Seen); Urine Protein, UAD 2+ (Negative); Urine Specific Gravity 1.031 (1.001-1.035); Urine Urobilinogen Normal (Negative); Urine WBC 133 /hpf (0 - 3); Urine pH 7.5 (5.0-9.0)
[2024-03-07] MEDS: InsuLIN REG 1unit/0.01ml Soln (100units/ml) SC ONE ×2 (02:15→05:49)
[2024-03-07] MEDS: LACTULOSE 20Gm/30ML SOLN PO ONE (02:15)
[2024-03-07] MEDS: DOCUSATE CALCIUM 240 MG CAP PO ONE (02:15)
[2024-03-07] MEDS: DEXTROSE (50%) 50ML SYRG IV ONE ×2 (02:15→05:49)
[2024-03-07] MEDS: ACCU-CHEK COMFORT CURVE STRIP VI ONE ×2 (02:15→05:49)
[2024-03-07] MEDS ORDERED: LACTULOSE 20Gm/30ML SOLN PO PRN (02:15)
[2024-03-07 03:34] VITALS: BP 184/79; PULSE 89; PULSE 90; RESP 19; TEMP 98; O2SAT 97
[2024-03-07] MEDS: hydrALAZINE HCL 20 MG/ML VL IV PRN (03:58)
[2024-03-07] MEDS: ACETAMINOPHEN 325 MG TAB PO PRN (04:06)
[2024-03-07 04:30] VITALS: BP 184/79; PULSE 90; RESP 19; TEMP 98.1; O2SAT 96
[2024-03-07] MEDS ORDERED: DEXTROSE (50%) 50ML SYRG IV PRN (05:45)
[2024-03-07] MEDS: GABAPENTIN 100 MG CAP PO SCH (05:55)
[2024-03-07] MEDS: SODIUM CHLOR 0.9% PF (SALINE LOCK) 10ML VIAL/SYR IV SCH (05:56)
[2024-03-07] MEDS: PANTOPRAZOLE 40 MG TAB PO SCH (05:56)
[2024-03-07 06:10] VITALS: BP 146/62; PULSE 89; RESP 18; O2SAT 95
[2024-03-07] MEDS: ACCU-CHEK COMFORT CURVE STRIP VI SCH (06:10)
[2024-03-07] MEDS: InsuLIN REG 1unit/0.01ml Soln (100units/ml) SC SCH (06:12)
[2024-03-07] MEDS ORDERED: CEPH250C PO (07:54)
--- NOTE | 2024-03-07 08:04 | DVHDS2 ---
New Physician D'charge PN Admitting Diagnosis Admitting Diagnosis uti Discharge Diagnosis uti esrd on hd Operations or Procedures none Reason(s) For Hospitalization Surgery Hospital Course 73 M who comes to ER for suprapubic pain and has chronic martinez that was recently exchanged on feb 25. His UA showed evidence for UTI. He had a nml WBC and chem panel showed Cr 7 however patient is ESRD and getd HD 3x/week. HE was admitted and started on iv abx for uti. His vitals are stable, he remains afebrile with no white count. He will be discharged home with PO Keflex x10 days for uti and will resume his normal HD schedule outpatient, Scripts sent to his pharmacy on file and patient to pa home to complete PO course of Abx for UTI. He will receive his IV dose Abx Rocephin today before discharge. Treatment Plan Discharge Condition of Discharge Good Disposition Home Discharge Instructions Diet: Renal Activity: No Restrictions, As Tolerated Medications: see med sheet Follow Up Care Follow Up/Referral: pcp renal Discharge Statement: "Patient was advised to return to the ER or call 911 if any headaches, dizziness, shortness of breath, chest pain, abdominal pain, bleeding, fevers, or worsening of medical condition. Patient was counseled about treatment plan, medications, possible side effects, patientverbalized understanding. All questions were answered to the best of my ability. This discharge took greater then 30 minutes in planning, reviewing documentation, counseling the patient, and discussing with other team members." IRAM SOMERS MD Mar 07, 2024 08:04
[2024-03-07 08:44] LABS: Alanine Aminotransferase 11 U/L (7-40); Alkaline Phosphatase 108 U/L (46-116); Anion Gap 11 (5-15); Aspartate Aminotransferase 11 U/L (13-40); BUN/Creatinine Ratio 5.3 (10.0-20.0); Blood Urea Nitrogen 45 mg/dL (9-23); Calcium 8.3 mg/dL (8.7-10.4); Carbon Dioxide 28 mmol/L (20-31); Chloride 100 mmol/L (98-107); Glucose 115 mg/dL (74-106); Magnesium 2.4 mg/dL (1.6-2.6); Phosphorus 4.1 mg/dL (2.4-5.1); Potassium 3.6 mmol/L (3.5-5.1); Sodium 139 mmol/L (136-145)
[2024-03-07 08:45] LABS: Bilirubin, Total 0.4 mg/dL (0.2-1.0); Total Protein 7.3 g/dL (5.7-8.2)
[2024-03-07] MEDS: cefTRIAXone 2GM/50ML D5W 50 ML IV ONE (08:48)
[2024-03-07 09:08] VITALS: BP 127/62; PULSE 89; RESP 14; TEMP 98; O2SAT 95
[2024-03-07] MEDS: hydrALAZINE HCL 25 MG TAB PO SCH (10:00)
[2024-03-07] MEDS: HEPARIN SODIUM (PORCINE) 5000 UNITS/ML 1ML VIAL SC SCH (10:00)
[2024-03-07] MEDS: FUROSEMIDE 40 MG TAB PO SCH (10:00)
[2024-03-07 10:03] LABS: Basophils # (auto) 0.1 10 ^3/uL (0-0.2); Basophils % (auto) 0.9 % (0.0-2.0); Eosinophils # (auto) 0 10 ^3/uL (0-0.8); Eosinophils % (auto) 0.5 % (0.0-7.0); Hematocrit 33.9 % (41.0-53.0); Hemoglobin 11.2 g/dL (13.5-17.5); Lymphocytes # (auto) 1.7 10 ^3/uL (0.4-5.4); Lymphocytes % (auto) 16.8 % (10.0-50.0); Mean Corpuscular Volume 97.1 fL (80.0-100.0); Monocytes # (auto) 0.9 10 ^3/uL (0-1.3); Monocytes % (auto) 8.9 % (0.0-12.0); Neutrophils # (auto) 7.3 10 ^3/uL (1.6-8.6); Neutrophils % (auto) 72.9 % (37.0-80.0); Nucleated Red Blood Cells % 0.2 %; Platelet Count (auto) 211 10^3/uL (140-450); Red Blood Cells 3.49 10^6/uL (4.5-5.90); Red Cell Distribution Width 13.7 % (11.8-14.3)
[2024-03-07] MEDS: FINASTERIDE 5 MG TAB PO SCH (10:18)
[2024-03-07] MEDS: CARVEDILOL 12.5 MG TAB PO SCH (10:18)
[2024-03-07] MEDS: amLODIPine BESYLATE 5 MG TAB PO SCH (10:19)
[2024-03-07] MEDS: DOCUSATE CALCIUM 240 MG CAP PO SCH (10:19)
[2024-03-07 13:00] VITALS: BP 156/78; PULSE 81; RESP 20; TEMP 98.1; O2SAT 98
[2024-03-07] MEDS ORDERED: TAMSULOSIN HYDROCHLORIDE 0.4 MG CAP PO SCH (18:00)
[2024-03-08 08:06] LABS: PSA Free 1.75 ng/mL; Prostate Specific Antigen 3.8 ng/mL (0.0-4.0)
== END 2024-03-07 14:48 | disposition home or self-care (01) | DRG 689 ==
LOC: ER 19:55 → EDBD 19:55 → EDUNIT# 19:55 → OVERFLOW 22:31 → WEST WING 03-07 03:30
PROVIDERS: ADMIT Internal Medicine; ATTEND Internal Medicine
DX: N39.0 Urinary tract infection, site not specified (principal); N18.6 End stage renal disease; I13.2 Hypertensive heart and chronic kidney disease with heart failure and with stage 5 chronic kidney disease, or end stage renal disease; I25.10 Atherosclerotic heart disease of native coronary artery without angina pectoris; E11.22 Type 2 diabetes mellitus with diabetic chronic kidney disease; I50.9 Heart failure, unspecified; N40.0 Benign prostatic hyperplasia without lower urinary tract symptoms; Y84.6 Urinary catheterization as the cause of abnormal reaction of the patient, or of later complication, without mention of misadventure at the time of the procedure; Z99.2 Dependence on renal dialysis; Z88.5 Allergy status to narcotic agent; Z90.49 Acquired absence of other specified parts of digestive tract
CPT/HCPCS: 36415; 74176; 80053; 81001; 82962; 83036; 83605; 83735; 84100; 84154; 85025; 87040; 87081; 87086; 87088; 87186; 96365; G0378; J1815

== ENCOUNTER 2024-03-17 02:45 | Emergency (ER) | payer OTHER ==
[~2024-03-17] VITALS: Ht 175.3 cm; Wt 76.3 kg
[~2024-03-17 02:45] MED LIST changes: +CEPH250C PO
--- NOTE | 2024-03-17 03:05 | ED.PDOC ---
History of Present Illness HPI Comments 73-year-old male with PMHx DM, HTN, CKF, HLD, BPH presents with a chief complaint of testicle pain and swelling x 5 days. Patient has swelling and tenderness to his right testicle. Patients testicle is also enlarged compared to the left. Patient mentions that he was seen at an outside clinic and was given authorization for an ultrasound, but reports that he could not wait any longer and came into the ER instead. Patient is on dialysis and has a suprapubic catheter in place. No other symptoms or modifying factors present at this time. Time Seen by MD: 03:00 Primary Care Provider: UNKNOWN Reviewed Notes: Medications, Allergies Allergies: Coded Allergies: Codeine (Verified Allergy, Unknown, 03/06/24) upset stomach/rash Sulfa Antibiotics (Verified Allergy, Unknown, 10/01/17) Home Meds Active Scripts Cephalexin (KEFLEX CAPSULE) 250 Mg Cp, 1 CAP PO QID, #40 CAP Prov:IRAM SOMERS MD 03/07/24 Reported Medications Insulin Aspart Protamine & Asp (Novolog Mix 70/30 Prefill (70-30) 100 Unit/ml) 1 Inj Inj, 8 UNITS SC, INJ 10/01/17 Insulin Glargine (Lantus) 100 Unit/Ml Inj, 50 UNIT SC QHS, INJ 10/01/17 Furosemide (Lasix) 40 Mg Tab, 40 MG PO DAILY, TAB 10/01/17 Hydralazine Hcl (Hydralazine Hcl) 25 Mg Tab, 25 MG PO BID for 30 Days, MG 10/01/17 Pantoprazole Sodium (PANTOPRAZOLE SODIUM) 40 Mg Inj, 40 MG PO DAILY, INJ 10/01/17 Rosuvastatin Calcium (Crestor) 40 Mg Tab, 1 TAB PO DAILY, #30 TAB 5 Refills 10/01/17 Cholecalciferol (D3 2000) 2,000 Unit Tab, 2000 UNIT PO DAILY, TAB 10/01/17 Cholecalciferol (D3) 2,000 Unit Tab, 2000 UNIT PO, TAB 10/01/17 Finasteride (Finasteride) 5 Mg Tab, 5 MG PO DAILY for 30 Days, MG 10/01/17 Tamsulosin Hcl (Tamsulosin Hcl) 0.4 Mg Cap, 0.8 MG PO QPM for 30 Days, MG 10/01/17 Gabapentin (Neurontin) 300 Mg Cap, 1 CAP PO TID, #90 CAP 3 Refills 10/01/17 Carvedilol (Coreg) 12.5 Mg Tab, 1 TAB PO BID, #180 TAB 1 Refill 10/01/17 Amlodipine Besylate (NORVASC TABLET) 5 Mg Tb, 2 TAB PO DAILY, #30 TAB 5 Refills 10/01/17 Information Source: Patient Mode of Arrival: Ambulatory Severity: Moderate Timing: Days Duration: Since onset Prehospital treatment: None Past Medical History PAST MEDICAL HISTORY: Anemia, CAD, CHF, DM, ESRD, HTN Past Medical History (Other): bph Surgical History: Appendectomy, Cholecystectomy Surgical History (Other): bilateral shoulder surgery, left hip Surgical History (Cont'd) suprapubic catheter Family History Family History: Reviewed,noncontributory to illness Social History Smoker: Non-Smoker Alcohol: Denies ETOH Use Drugs: Denies Drug Use Lives In: Home Constitutional: denies: chills, diaphoresis, fatigue, fever, malaise, sweats, weakness, others EENTM: denies: blurred vision, double vision, ear bleeding, ear discharge, ear drainage, ear pain, ear ringing, eye pain, eye redness, hearing loss, mouth pain, mouth swelling, nasal discharge, nose bleeding, nose congestion, nose pain, photophobia, tearing, throat pain, throat swelling, voice changes, others Respiratory: denies: cough, hemoptysis, orthopnea, SOB at rest, shortness of breath, SOB with excertion, stridor, wheezing, others Cardiovascular: denies: chest pain, dizzy spells, diaphoresis, Dyspnea on exertion, edema, irregular heart beat, left arm pain, lightheadedness, palpitations, PND, syncope, others Gastrointestinal: denies: abdomen distended, abdominal pain, blood streaked bowels, constipated, diarrhea, dysphagia, difficulty swallowing, hematemesis, melena, nausea, poor appetite, poor fluid intake, rectal bleeding, rectal pain, vomiting, others Genitourinary: reports: testicle pain (RIGHT TESTICLE), testicle swelling (RIGHT TESTICLE); denies: burning, dysuria, flank pain, frequency, hematuria, incontinence, penile discharge, penile sore, pain, urgency, others Neurological: denies: dizziness, fainting, headache, left sided numbness, left sided weakness, numbness, paresthesia, pre-existing deficit, right sided numbness, right sided weakness, seizure, speech problems, tingling, tremors, weakness, others Musculoskeletal: denies: back pain, gout, joint pain, joint swelling, muscle pain, muscle stiffness, neck pain, others Integumetry: denies: bruises, change in color, change in hair/nails, dryness, laceration, lesions, lumps, rash, wounds, others Allergic/Immunocompromised: denies: Difficulty Healing, Frequent Infections, Hives, Itching, others Hematologic/Lymphatic: denies: anemia, blood clots, easy bleeding, easy bruising, swollen glands, others Endocrine: denies: excessive hunger, excessive sweating, excessive thirst, excessive urination, flushing, intolerance to cold, intolerance to heat, unexplained weight gain, unexplained weight loss, others Psychiatric: denies: anxiety, bipolar disorder, depression, hopeless, panic disorder, schizophrenia, sleepless, suicidal, others All Other Systems: Reviewed and Negative Physical Exam General Appearance: No Apparent Distress, Normal HEENT: Normal ENT Inspection, Pharynx Normal, TMs Normal Neck: Full Range of Motion, Non-Tender, Normal, Normal Inspection Respiratory: Chest Non-Tender, Lungs Clear, No Accessory Muscle Use, No Respiratory Distress, Normal Breath Sounds Cardiovascular: No Edema, No JVD, No Murmur, No Gallop, Normal Peripheral Pulses, Regular Rate/Rhythm Breast Exam: Deferred Gastrointestinal: No Organomegaly, Non Tender, No Pulsatile Mass, Normal Bowel Sounds, Soft, Suprapubic (PATIENT HAS SUPRAPUBIC CATHETER IN PLACE) Genitalia: Testicle (RIGHT TESTICLE IS ENLARGED, FIRM, AND TENDER TO TOUCH) Pelvic: Deferred Rectal: Deferred Extremities: No calf tenderness, Normal capillary refill, Normal inspection, Normal range of motion, Non-tender, No pedal edema Musculoskeletal : Apperance: Normal Neurologic: Alert, nursery rn II-XII nml as Tested, No Motor Deficits, Normal Affect, Normal Mood, No Sensory Deficits Cerebellar Function: Normal Reflexes: Normal Skin: Dry, Normal Color, Warm Lymphatic: No Adenopathy Was a procedure done? Was a procedure done?: No Differential Dx Considerations may include: hydrocele, orchitis, inguinal hernia, varicocele, testicular mass X-Ray, Labs, Meds, VS Vital Signs Date Time Temp Pulse Resp B/P (MAP) Pulse Ox O2 Delivery O2 Flow Rate FiO2 03/17/24 03:00 97.9 78 16 145/76 (99) 99 Lab Test 03/17/24 03:15 Range/Units White Blood Count 7.6 4.4-10.8 10^3/uL Red Blood Count 3.50 L 4.5-5.90 10^6/uL Hemoglobin 11.3 L 13.5-17.5 g/dL Hematocrit 34.0 L 41.0-53.0 % Mean Corpuscular Volume 97.0 80.0-100.0 fL Mean Corpuscular Hemoglobin 32.2 H 28.0-32.0 pg Mean Corpuscular Hemoglobin Concent 33.2 32.0-36.0 g/dL Red Cell Distribution Width 14.1 11.8-14.3 % Platelet Count 292 140-450 10^3/uL Mean Platelet Volume 6.9 6.9-10.8 fL Neutrophils (%) (Auto) 62.7 37.0-80.0 % Lymphocytes (%) (Auto) 23.5 10.0-50.0 % Monocytes (%) (Auto) 9.9 0.0-12.0 % Eosinophils (%) (Auto) 3.0 0.0-7.0 % Basophils (%) (Auto) 0.9 0.0-2.0 % Neutrophils # (Auto) 4.8 1.6-8.6 10 ^3/uL Lymphocytes # (Auto) 1.8 0.4-5.4 10 ^3/uL Monocytes # (Auto) 0.8 0-1.3 10 ^3/uL Eosinophils # (Auto) 0.2 0-0.8 10 ^3/uL Basophils # (Auto) 0.1 0-0.2 10 ^3/uL Nucleated Red Blood Cells 0.1 % Sodium Level 136 136-145 mmol/L Potassium Level 4.6 3.5-5.1 mmol/L Chloride Level 97 L 98-107 mmol/L Carbon Dioxide Level 24 20-31 mmol/L Anion Gap 15 5-15 Blood Urea Nitrogen 60 H 9-23 mg/dL Creatinine 9.14 H 0.700-1.30 mg/dL Glomerular Filtration Rate Calc 6 >90 mL/min BUN/Creatinine Ratio 6.6 L 10.0-20.0 Serum Glucose 162 H 74-106 mg/dL Calcium Level 8.5 L 8.7-10.4 mg/dL Time of 1ST Reevaluation: 03:30 Reevaluation 1ST: Unchanged Patient Education/Counseling: Diagnosis, Treatment, Prognosis, Need For Follow Up Family Education/Counseling: No Family Present Additional Information I reviewed the following notes from the pt's past medical encounters: Patient has previously been admitted to this hospital in the past, with most recent discharge being March 07, 2024. The following tests were ordered, and results were reviewed by me: Testicular ultrasound I reviewed and agreed with the following test results read by other providers: (US) I discussed treatments and results with medical personnel pt is waiting for morning insurance sales specialist to perform the US. i will sign out to Dr Cosby Departure 1 Departure Time of Disposition: 06:02 Impression: Primary Impression: Testicular pain Qualified Codes: N50.811 - Right testicular pain Disposition: 30 STILL A PATIENT Condition: Stable Critical Care Note Critical Care Time?: No Stability Stability form required: No I personally scribed for LINH DAVIS MD ([email or web address]) on 03/17/24 at 03:05. Electronically submitted by Elvin Murry ([email or web address]). LINH DAVIS MD Mar 17, 2024 03:05
[2024-03-17 03:32] LABS: Basophils # (auto) 0.1 10 ^3/uL (0-0.2); Basophils % (auto) 0.9 % (0.0-2.0); Eosinophils # (auto) 0.2 10 ^3/uL (0-0.8); Hemoglobin 11.3 g/dL (13.5-17.5); Lymphocytes # (auto) 1.8 10 ^3/uL (0.4-5.4); Lymphocytes % (auto) 23.5 % (10.0-50.0); Mean Corpuscular Hemoglobin 32.2 pg (28.0-32.0); Mean Corpuscular Hgb Conc. 33.2 g/dL (32.0-36.0); Monocytes # (auto) 0.8 10 ^3/uL (0-1.3); Monocytes % (auto) 9.9 % (0.0-12.0); Neutrophils # (auto) 4.8 10 ^3/uL (1.6-8.6); Neutrophils % (auto) 62.7 % (37.0-80.0); Nucleated Red Blood Cells % 0.1 %; Platelet Count (auto) 292 10^3/uL (140-450); Red Cell Distribution Width 14.1 % (11.8-14.3); White Blood Cell 7.6 10^3/uL (4.4-10.8)
[2024-03-17 03:39] LABS: Potassium 4.6 mmol/L (3.5-5.1); Sodium 136 mmol/L (136-145)
[2024-03-17 03:40] LABS: Anion Gap 15 (5-15); Carbon Dioxide 24 mmol/L (20-31)
[2024-03-17 03:45] LABS: BUN/Creatinine Ratio 6.6 (10.0-20.0)
[2024-03-17 03:46] LABS: Blood Urea Nitrogen 60 mg/dL (9-23); Calcium 8.5 mg/dL (8.7-10.4); Chloride 97 mmol/L (98-107); Glucose 162 mg/dL (74-106)
--- NOTE | 2024-03-17 06:55 | DVH ---
CLINICAL INFORMATION: 73 years old, Male; right testicular swellng, pain. TECHNIQUE: Grayscale sonographic imaging of the testicles and scrotal contents was performed , inez eufemia by color doppler technique. Duplex doppler ultrasound of both testicles was performed. COMPARISON: None FINDINGS: The right testicle measures 3.4 x 3.0 x 2.8 cm heterogeneous echotexture. Arterial and venous blood flow demonstrated. Hypervascularity of the right testicle and epididymis. Right epididymis measures 1.2 cm in length. Large right hydrocele. No varicocele. The left testicle measures 3.6 x 2.7 x 2.8 cm, within normal limits. Unremarkable echogenicity of the left testicle. Arterial and venous blood flow demonstrated. Unremarkable epididymis. Small left hy drocele. No varicocele. IMPRESSION: 1. Findings compatible with acute right epididymitis orchitis. Large right hydrocele. 2. Small left hydrocele.
[2024-03-17] MEDS ORDERED: DOXY-286 PO (07:19)
[2024-03-17] MEDS: cefTRIAXone SOD 500 MG VL IM ONE (07:30)
[2024-03-17 07:33] VITALS: BP 146/66; PULSE 73; RESP 16; TEMP 97; O2SAT 100
== END 2024-03-17 08:26 | disposition home or self-care (01) ==
LOC: ER 02:45
DX: N50.811 Right testicular pain (principal); I13.2 Hypertensive heart and chronic kidney disease with heart failure and with stage 5 chronic kidney disease, or end stage renal disease; E11.22 Type 2 diabetes mellitus with diabetic chronic kidney disease; I50.9 Heart failure, unspecified; N18.6 End stage renal disease; E78.5 Hyperlipidemia, unspecified; Z99.2 Dependence on renal dialysis; Z79.899 Other long term (current) drug therapy; Z88.2 Allergy status to sulfonamides; Z88.5 Allergy status to narcotic agent; Z90.49 Acquired absence of other specified parts of digestive tract; Z98.890 Other specified postprocedural states
CPT/HCPCS: 36415; 76870; 80048; 85025; 96372; 99285; J0696

== ENCOUNTER 2024-03-27 12:37 | Inpatient (IN) | payer OTHER ==
[~2024-03-27] VITALS: Ht 175.3 cm; Wt 74.4 kg
[~2024-03-27 12:37] MED LIST changes: +DOXY-286 PO
--- NOTE | 2024-03-27 12:47 | ED.PDOC ---
History of Present Illness HPI Comments 73y M who presents to the ED via EMS for chief complaint of chills. Per EMS, pt has CKD and gets dialysis on and Sat and while at dialysis appt, and while 1 hour into infusion, pt started to get chills and weakness. Pt dialysis was completed and EMS was called to the scene. EMS arrived on scene and pt vitals were checked and EMS states 02 sat was in the 70's and pt was placed on and brought to the ED. EMS states pt was taken off 02 prior to ED arrival after pt 02 sat westley to the the high 90's with pt in no respiratory distress. Pt states now in the ED, he is having associated shorntess of breath in the ED. Pt states he has suprapubic cath and states he recently finished a course of antibiotics for his infection in catheter. Pt otherwise denies any other symptoms at this time. 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 Allergies: Coded Allergies: Codeine (Verified Allergy, Unknown, 03/06/24) upset stomach/rash Sulfa Antibiotics (Verified Allergy, Unknown, 10/01/17) Home Meds Active Scripts Doxycycline Hyclate (DOXYCYCLINE HYCLATE) 100 Mg Tab, 1 TAB PO BID, #14 TAB Prov:DARIANA MESSER MD 03/17/24 Cephalexin (KEFLEX CAPSULE) 250 Mg Cp, 1 CAP PO QID, #40 CAP Prov:IRAM SOMERS MD 03/07/24 Reported Medications Insulin Aspart Protamine & Asp (Novolog Mix 70/30 Prefill (70-30) 100 Unit/ml) 1 Inj Inj, 8 UNITS SC, INJ 10/01/17 Insulin Glargine (Lantus) 100 Unit/Ml Inj, 50 UNIT SC QHS, INJ 10/01/17 Furosemide (Lasix) 40 Mg Tab, 40 MG PO DAILY, TAB 10/01/17 Hydralazine Hcl (Hydralazine Hcl) 25 Mg Tab, 25 MG PO BID for 30 Days, MG 10/01/17 Pantoprazole Sodium (PANTOPRAZOLE SODIUM) 40 Mg Inj, 40 MG PO DAILY, INJ 10/01/17 Rosuvastatin Calcium (Crestor) 40 Mg Tab, 1 TAB PO DAILY, #30 TAB 5 Refills 10/01/17 Cholecalciferol (D3 1999) 2,000 Unit Tab, 2000 UNIT PO DAILY, TAB 10/01/17 Cholecalciferol (D3) 2,000 Unit Tab, 2000 UNIT PO, TAB 10/01/17 Finasteride (Finasteride) 5 Mg Tab, 5 MG PO DAILY for 30 Days, MG 10/01/17 Tamsulosin Hcl (Tamsulosin Hcl) 0.4 Mg Cap, 0.8 MG PO QPM for 30 Days, MG 10/01/17 Gabapentin (Neurontin) 300 Mg Cap, 1 CAP PO TID, #90 CAP 3 Refills 10/01/17 Carvedilol (Coreg) 12.5 Mg Tab, 1 TAB PO BID, #180 TAB 1 Refill 10/01/17 Amlodipine Besylate (NORVASC TABLET) 5 Mg Tb, 2 TAB PO DAILY, #30 TAB 5 Refills 10/01/17 Information Source: Patient, Emergency Med Personnel Mode of Arrival: EMS Past Medical History PAST MEDICAL HISTORY: AFIB, Anemia, CAD, CHF, DM, ESRD, HTN Surgical History: Appendectomy, Cholecystectomy Family History Family History: Reviewed,noncontributory to illness Social History Smoker: Non-Smoker Alcohol: Denies ETOH Use Drugs: Denies Drug Use Lives In: Home Constitutional: reports: chills, weakness; denies: diaphoresis, fatigue, fever, malaise, sweats, others EENTM: denies: blurred vision, double vision, ear bleeding, ear discharge, ear drainage, ear pain, ear ringing, eye pain, eye redness, hearing loss, mouth pain, mouth swelling, nasal discharge, nose bleeding, nose congestion, nose pain, photophobia, tearing, throat pain, throat swelling, voice changes, others Respiratory: reports: shortness of breath; denies: cough, hemoptysis, orthopnea, SOB at rest, SOB with excertion, stridor, wheezing, others Cardiovascular: denies: chest pain, dizzy spells, diaphoresis, Dyspnea on exertion, edema, irregular heart beat, left arm pain, lightheadedness, palpitations, PND, syncope, others Gastrointestinal: denies: abdomen distended, abdominal pain, blood streaked bowels, constipated, diarrhea, dysphagia, difficulty swallowing, hematemesis, melena, nausea, poor appetite, poor fluid intake, rectal bleeding, rectal pain, vomiting, others Genitourinary: denies: burning, dysuria, flank pain, frequency, hematuria, incontinence, penile discharge, penile sore, pain, testicle pain, testicle swelling, urgency, others Neurological: denies: dizziness, fainting, headache, left sided numbness, left sided weakness, numbness, paresthesia, pre-existing deficit, right sided numbnes s, right sided weakness, seizure, speech problems, tingling, tremors, weakness, others Musculoskeletal: denies: back pain, gout, joint pain, joint swelling, muscle pain, muscle stiffness, neck pain, others Integumetry: denies: bruises, change in color, change in hair/nails, dryness, laceration, lesions, lumps, rash, wounds, others Allergic/Immunocompromised: denies: Difficulty Healing, Frequent Infections, Hives, Itching, others Hematologic/Lymphatic: denies: anemia, blood clots, easy bleeding, easy bruising, swollen glands, others Endocrine: denies: excessive hunger, excessive sweating, excessive thirst, excessive urination, flushing, intolerance to cold, intolerance to heat, unexplained weight gain, unexplained weight loss, others Psychiatric: denies: anxiety, bipolar disorder, depression, hopeless, panic disorder, schizophrenia, sleepless, suicidal, others All Other Systems: Reviewed and Negative Physical Exam General Appearance: Moderate Distress HEENT: Normal ENT Inspection, Pharynx Normal, TMs Normal Neck: Full Range of Motion, Non-Tender, Normal, Normal Inspection Respiratory: Other (Coarse breath sounds) Cardiovascular: No Edema, No JVD, No Murmur, No Gallop, Normal Peripheral Pulses, Regular Rate/Rhythm Breast Exam: Deferred Gastrointestinal: No Organomegaly, Non Tender, No Pulsatile Mass, Normal Bowel Sounds, Soft Genitalia: Deferred Pelvic: Deferred Rectal: Deferred Extremities: No calf tenderness, Normal capillary refill, Normal inspection, Normal range of motion, Non-tender, No pedal edema Musculoskeletal : Apperance: Normal Neurologic: Alert, vending route driver II-XII nml as Tested, No Motor Deficits, Normal Affect, Normal Mood, No Sensory Deficits Cerebellar Function: NOT DONE Reflexes: NOT DONE Skin: Dry, Normal Color, Warm Peripheral Pulses: 3+ Radial (R), 3+ Radial (L) Lymphatic: No Adenopathy Was a procedure done? Was a procedure done?: No Differential Dx Considerations may include: generalized weakness, dehydration, uti due to suprapubic catheter, CKD on dialysis, X-Ray, Labs, Meds, VS Patient alert. Complaining of generalized weakness. Having chills shortness a breath while on dialysis. Vitals stable. Reviewed his previous visit. EKG reviewed does not show any acute changes. Explained to the patient. Continue cardiac monitoring. Time of 1ST Reevaluation: 13:15 Reevaluation 1ST: Unchanged Patient Education/Counseling: Diagnosis, Treatment Family Education/Counseling: No Family Present Additional Information - I reviewed the following notes from patient's past medical encounters: - The following tests were ordered, and results were reviewed by me: CBC, BMP, chest x-ray, troponin x1 - Additional information was gathered from interviewing the following independent Historian: EMS - I reviewed and agreed with the following test results read by other provider: radiologist - I discussed treatments and results with medical personnel and: patient Departure 1 Departure Time of Disposition: 12:54 Impression: Primary Impression: HTN (hypertension) Qualified Codes: I10 - Essential (primary) hypertension Additional Impression: Uncontrolled diabetes mellitus Qualified Codes: E13.65 - Other specified diabetes mellitus with hyperglycemia Disposition: ADMITTED INPATIENT Admit to: Med Surg Condition: Guarded Critical Care Note Critical Care Time?: Yes (45 min-critical care time only) Stability Stability form required: No Heart Score Heart Score: Heart Score Response (Comments) Value History Slightly Suspicious 0 EKG Normal 0 Age >65 2 Risk Factors >3 or Hx ASHD 2 Troponin Normal limit 0 Total 4 I personally scribed for DARRYL SOLANO MD ([email or web address]) on 03/27/24 at 12:47. Electronically submitted by Nacho Pardo ([email or web address]). DARRYL SOLANO MD Mar 27, 2024 12:47
[2024-03-27 13:09] LABS: Basophils # (auto) 0.1 10 ^3/uL (0-0.2); Basophils % (auto) 0.6 % (0.0-2.0); Eosinophils # (auto) 0.1 10 ^3/uL (0-0.8); Eosinophils % (auto) 0.9 % (0.0-7.0); Hematocrit 36.1 % (41.0-53.0); Hemoglobin 11.6 g/dL (13.5-17.5); Lymphocytes % (auto) 8.9 % (10.0-50.0); Mean Corpuscular Hemoglobin 30.7 pg (28.0-32.0); Mean Corpuscular Hgb Conc. 32.2 g/dL (32.0-36.0); Mean Corpuscular Volume 95.3 fL (80.0-100.0); Monocytes # (auto) 0.8 10 ^3/uL (0-1.3); Monocytes % (auto) 6.9 % (0.0-12.0); Neutrophils # (auto) 9.3 10 ^3/uL (1.6-8.6); Neutrophils % (auto) 82.7 % (37.0-80.0); Platelet Count (auto) 255 10^3/uL (140-450); Red Blood Cells 3.79 10^6/uL (4.5-5.90); Red Cell Distribution Width 14.4 % (11.8-14.3); White Blood Cell 11.3 10^3/uL (4.4-10.8)
--- NOTE | 2024-03-27 13:15 | DVH ---
CLINICAL INFORMATION: 73 years old, Male; shortness of breath. TECHNIQUE: Single AP portable chest radiograph was obtained. COMPARISON: None FINDINGS: Lungs: Clear. Cardiac: Heart size is within normal limits. Pulmonary vasculature: Unremarkable. Mediastinum/brandt: Dense atherosclerotic calcification of the aortic arch. Bones: No acute osseous abnormality identified. Other: No other significant findings. IMPRESSION: No evidence of acute disease in the chest.
[2024-03-27 13:19] LABS: Chloride 98 mmol/L (98-107); Potassium 3.9 mmol/L (3.5-5.1); Sodium 139 mmol/L (136-145)
[2024-03-27 13:20] LABS: Anion Gap 8 (5-15)
[2024-03-27 13:24] LABS: Carbon Dioxide 33 mmol/L (20-31)
[2024-03-27 13:25] LABS: BUN/Creatinine Ratio 5.2 (10.0-20.0)
[2024-03-27 13:26] LABS: Blood Urea Nitrogen 30 mg/dL (9-23); Glucose 112 mg/dL (74-106)
--- NOTE | 2024-03-27 19:15 | ECG ---
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
[2024-03-27] MEDS ORDERED: NITROGLYCERIN 0.4 MG SL TAB SL PRN (21:00)
[2024-03-27 21:03] VITALS: PULSE 97; RESP 16; O2SAT 98
--- NOTE | 2024-03-27 21:05 | DVHHPRES ---
History of Present Illness Resident Creating Document: PATRICIO RODRIGUEZ RESIDENT History of Present Illness Mr. Corona a 73-year-old male with a history of AFIB, anemia, CAD, CHF, DM, ESRD, and HTN, presented to the ED via EMS for chills. During his dialysis session, he developed chills and weakness, prompting EMS to be called. His oxygen saturation was initially in the 70s but improved to the high 90s with oxygen therapy. In the ED, he reported shortness of breath. He has a suprapubic catheter and recently completed antibiotics for a catheter infection. He denies any other symptoms at this time. His surgical history includes appendectomy and cholecystectomy. previous hospital admission in March 06 with suprapubic pain likely due to UTI. Follows Dr. Anaya for suprapubic catheter management and last catheter change yesterday at his office 03/27/2024. Last hemodialysis yesterday as well, 03/27/2024 on . Cardiovascular: AFIB, HTN Heme/Onc: Anemia NOS Musculoskeletal: Osteoarthritis Infectious disease: Other (Prior UTI) Renal/: Chronic renal insuff, Chronic renal failure Endocrine: Diabetes Review of Systems Constitutional: Yes: Chills, Weakness, Malaise; No: Fever, Sweats, Other Eyes: No: Pain, Vision change, Conjunctivae inflammation, Eyelid inflammation, Other, Redness ENT: No: Ear pain, Ear discharge, Nose pain, Nose discharge, Nose congestion, Mouth pain, Mouth swelling, Throat pain, Throat swelling, Other Respiratory: No: Cough, Dry, Shortness of breath, SOB with excertion, Wheezing, Hemoptysis, Pleuritic Pain, Sputum, Wheezing, Other Cardiovascular: No: Chest Pain, Palpitations, Orthopnea, Paroxysmal Noc. Dyspnea, Edema, Lt Headedness, Other Gastrointestinal: No: Nausea, Vomiting, Abdominal Pain, Diarrhea, Constipation, Melena, Hematochezia, Other Genitourinary: No Dysuria, No Frequency, No Incontinence, No Hematuria, No Retention, No Other Musculoskeletal: No: other, neck pain, shoulder pain, arm pain, back pain, hand pain, leg pain, foot pain Skin: No: Rash, Lesions, Jaundice, Bruising, Other Neurological: No: Weakness, Numbness, Incoordination, Change in speech, Confusion, Seizures, Other Allergies: Coded Allergies: Ciprofloxacin (Verified Allergy, Unknown, 03/28/24) Codeine (Verified Allergy, Unknown, 03/06/24) upset stomach/rash Sulfa Antibiotics (Verified Allergy, Unknown, 10/01/17) Medications Current Medications Medications Dose Ordered Sig/Pia Route Start Time Stop Time Status Last Admin Dose Admin Nitroglycerin 0.4 mg Q5MINP PRN SL 03/27/24 21:00 UNV Morphine Sulfate 2 mg Q30M PRN IV 03/27/24 21:00 UNV Exam Vital Signs Vital Signs Date Time Temp Pulse Resp B/P (MAP) Pulse Ox O2 Delivery O2 Flow Rate FiO2 03/27/24 20:40 98.9 97 16 122/60 (80) 98 98.9 General Appearance: Alert, Oriented X3, Cooperative, mild distress HEENT: Atraumatic, PERRLA, EOMI, Mucous membr. moist/pink, Other (Pallor) Respiratory: Clear to auscultation, Normal air movement Cardiovascular: Regular rate, Normal S1, Normal S2, No murmurs, Other (Left forearm fistula healthy continuous murmur noted.) Abdominal: Normal bowel sounds, Soft, Other (Suprapubic tenderness, catheter present, crusting around the stoma but no signs of skin and soft tissue infection or purulent discharge noted. cva angle tenderness -ve) Extremities: No clubbing, No cyanosis, No edema, Normal pulses, No tenderness/swelling Skin: No rashes, No breakdown, No significant lesion Neuro: Normal gait, Normal speech, Strength at 5/5 X4 ext, Normal tone, Sensation intact, Cranial nerves 3-12 NL, Reflexes 2+, Other (Mild overall weakness) Psych/Mental Status: Mental status NL, Mood NL Labs/Xrays Labs Test 03/27/24 12:48 Range/Units White Blood Count 11.3 H 4.4-10.8 10^3/uL Red Blood Count 3.79 L 4.5-5.90 10^6/uL Hemoglobin 11.6 L 13.5-17.5 g/dL Hematocrit 36.1 L 41.0-53.0 % Mean Corpuscular Volume 95.3 80.0-100.0 fL Mean Corpuscular Hemoglobin 30.7 28.0-32.0 pg Mean Corpuscular Hemoglobin Concent 32.2 32.0-36.0 g/dL Red Cell Distribution Width 14.4 H 11.8-14.3 % Platelet Count 255 140-450 10^3/uL Mean Platelet Volume 7.2 6.9-10.8 fL Neutrophils (%) (Auto) 82.7 H 37.0-80.0 % Lymphocytes (%) (Auto) 8.9 L 10.0-50.0 % Monocytes (%) (Auto) 6.9 0.0-12.0 % Eosinophils (%) (Auto) 0.9 0.0-7.0 % Basophils (%) (Auto) 0.6 0.0-2.0 % Neutrophils # (Auto) 9.3 H 1.6-8.6 10 ^3/uL Lymphocytes # (Auto) 1.0 0.4-5.4 10 ^3/uL Monocytes # (Auto) 0.8 0-1.3 10 ^3/uL Eosinophils # (Auto) 0.1 0-0.8 10 ^3/uL Basophils # (Auto) 0.1 0-0.2 10 ^3/uL Nucleated Red Blood Cells 0.0 % Sodium Level 139 136-145 mmol/L Potassium Level 3.9 3.5-5.1 mmol/L Chloride Level 98 98-107 mmol/L Carbon Dioxide Level 33 H 20-31 mmol/L Anion Gap 8 5-15 Blood Urea Nitrogen 30 H 9-23 mg/dL Creatinine 5.76 H 0.700-1.30 mg/dL Glomerular Filtration Rate Calc 10 >90 mL/min BUN/Creatinine Ratio 5.2 L 10.0-20.0 Serum Glucose 112 H 74-106 mg/dL Calcium Level 9.0 8.7-10.4 mg/dL Troponin I High Sensitivity 11 </=54 ng/L [address] [address] Ph: [phone] DIAGNOSTIC IMAGING Diagnostic Imaging Report : [id number] Signed PATIENT: KRISTIN FOLEY ACCT: [id number] UNIT: [id number] : 1950 LOC: ER ROOM / BED: / AGE / SEX: 73 / M ADM STATUS: REG ER SERVICE [id number] ORDERING PHYSICIAN: DARRYL SOLANO MD PROCEDURE(s): CXRP - CHEST PORTABLE REASON: SOB ORDER NUMBER(s): [id number], ACCESSION NUMBER(s): [id number] CLINICAL INFORMATION: 73 years old, Male; shortness of breath. TECHNIQUE: Single AP portable chest radiograph was obtained. COMPARISON: None FINDINGS: Lungs: Clear. Cardiac: Heart size is within normal limits. Pulmonary vasculature: Unremarkable. Mediastinum/brandt: Dense atherosclerotic calcification of the aortic arch. Bones: No acute osseous abnormality identified. Other: No other significant findings. IMPRESSION: No evidence of acute disease in the chest. ATED BY: TRE LOPEZ DO DICTATED DATE/TIME: 03/27/241311 SIGNED BY: RTE LOPEZ DO SIGNED DATE/TIME: 03/27/241311 CC: Assessment/Plan Assessment/Plan Assessment: Mr. Corona, a 73-year-old male with a history of AFIB, anemia, CAD, CHF, DM, ESRD, and HTN, presented to the ED via EMS for chills. During dialysis, he developed chills and weakness, and his oxygen saturation initially dropped to the 70s but improved to the high 90s with oxygen therapy. In the ED, he reported shortness of breath. He has a suprapubic catheter and recently completed antibiotics for a catheter infection. He denies other symptoms. His surgical history includes appendectomy and cholecystectomy, with a previous hospital admission in February for suprapubic pain likely due to a UTI, with cultures positive for E. coli and Pseudomonas. Plan: #1 Possible infection associated with suprapubic catheter: Last catheter change yesterday by Dr. Anaya's office. patient had recent infection of the suprapubic catheter. Patient presented with chills, no signs of sepsis, lactate WNL , elevated WBC 11.3, predominant neutrophilia with lymphopenia. Extensive workup panel pending with UA, sputum culture, blood culture, so far negative for influenza, COVID And CXR unremarkable. HD fistula ultrasound And pending. gross physical examination unremarkable no skin infection noted. #2 Possible catheter associated UTI: Existing suprapubic catheter previous history of infection with history as stated coli and Pseudomonas aeruginosa. Broad coverage with IV vancomycin and Zosyn further treatment as per culture and sensitivity data. intraabdominal tenderness continues. check CT abdomen and pelvis without contrast. #3 anemia Of chronic disease : baseline around 11-12. Continue treatment along with the ESRD. #4 End-stage renal disease on hemodialysis: Has a existing right arm fistula. Likely progress from uncontrolled diabetes complex with postrenal obstruction. Patient on Sunday, , Sunday regimen for dialysis. In-hospital nephrology consulted for in-hospital possible dialysis. #5 Diabetes mellitus: Check HGB A1c, as needed mild SSI, cc diet/ renal diet to continue. Target blood glucose between 140-180 in-hospital postprandial. previously the patient on Lantus and short-acting insulin. Presumably BGs well maintained After developing of ESRD. #6 known AFIB: On telemetry, keep the heart rate below 110 on moderate exertion and below 80 as per RACE II trial. Keep magnesium above 2, potassium above 4. #7 existing suprapubic catheter: Could be a source of infection, change within past 1 month, continue antibiotics we will consider changing it culture pending. #8 history of essential hypertension: Amlodipine 5 mg daily, carvedilol 12.5 mg p.o. b.i.d. not on anticoagulation. To keep blood pressure 130/80 or below. Blood pressure well maintained holding home antihypertensives given active infection. #9 vitamin-D deficiency: Oral 2000 units daily continue. #10 Chronic low back pain / osteoarthritis: Gabapentin 100 mg daily to continue As needed Tylenol added. If the pain worsens lidocaine patch as needed q.12 hours. #11 Known history of BPH: Patient is still on finasteride and 0.8 of prazosin continue. #12 surgical history of cholecystectomy #13 Surgical history of appendicectomy #14 Left anterior fascicular block: on telemetry PUD prophylaxis: protonix 40mg oral Continue DVT prophylaxis: SCD/brisk movement. Barriers to discharge: Medical diagnosis and management in progress. Patient lives with family. Independent for ADL. PCP: Dr. Casillas. 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 Yoo. Urology Dr. Anaya. Case discussed with Dr. Dong. Code Status: Full Code. Discussion of care needed total 21 minutes bedside. Plan discussed with: Patient, Other (Primary team RN.) My Orders Orders - PATRICIO RODRIGUEZ RESIDENT Procedure Category Date Status Time Admit ADMIT 03/27/24 Transmitted 20:56 Nitroglycerin [facility] 03/27/24 Logged Sublingual (Ntrostat 21:00 Morphine Sulfate [facility] 03/27/24 Logged Injection 21:00 Oxygen By Nasal RT 03/27/24 Transmitted Cannula 20:56 Stat Ekg For Chest [facility] 03/27/24 In Process Pain 20:56 Notify Md Of Changes [facility] 03/27/24 In Process From Base 20:56 Faith Doctor For [facility] 03/27/24 In Process 24 Hours 20:56 Emergency Dysrhythmia [facility] 03/27/24 In Process Protocol 20:56 Rhythm Strips Once [facility] 03/27/24 In Process Every Shift 20:56 Date of Service: Mar 27, 2024 Billing Provider: MAXIMUS DONG MD Common Visit Codes: [id number] INP/OBS CARE (HIGH) Secondary Visit Codes: [id number] CARE PLAN 30 MINUTES PATRICIO RODRIGUEZ RESIDENT Mar 27, 2024 21:05 MAXIMUS DONG MD Mar 30, 2024 18:40
[2024-03-27] MEDS ORDERED: VANCOMYCIN PER PHARMACY 0 MG IV SCH (21:45)
[2024-03-27] MEDS: PIPERACILLIN-TAZOB 3.375GM 100 ML IV ONE (22:12)
[2024-03-27 22:36] LABS: Rapid Influenza A Negative (Negative); Rapid Influenza B Negative (Negative)
[2024-03-27 22:39] LABS: COVID19 ANTIGEN SOFIA FIA NEGATIVE (NEGATIVE)
[2024-03-27] MEDS ORDERED: ACETAMINOPHEN 325 MG TAB PO PRN (23:30)
[2024-03-28 00:30] VITALS: PULSE 91; RESP 21; O2SAT 99
[2024-03-28] MEDS: VANCOMYCIN 1GM/250ML KIT 250 ML IV ONE (00:57)
[2024-03-28] MEDS: VANCOMYCIN 1GM/250ML KIT 125 ML IV ONE (01:00)
[2024-03-28 07:35] LABS: Basophils # (auto) 0.1 10 ^3/uL (0-0.2); Basophils % (auto) 0.6 % (0.0-2.0); Eosinophils # (auto) 0 10 ^3/uL (0-0.8); Eosinophils % (auto) 0.2 % (0.0-7.0); Hematocrit 31.6 % (41.0-53.0); Hemoglobin 10.6 g/dL (13.5-17.5); Lymphocytes # (auto) 1.7 10 ^3/uL (0.4-5.4); Lymphocytes % (auto) 12.8 % (10.0-50.0); Mean Corpuscular Hemoglobin 31.6 pg (28.0-32.0); Mean Corpuscular Hgb Conc. 33.4 g/dL (32.0-36.0); Mean Corpuscular Volume 94.7 fL (80.0-100.0); Monocytes # (auto) 1.1 10 ^3/uL (0-1.3); Monocytes % (auto) 8.3 % (0.0-12.0); Neutrophils # (auto) 10.5 10 ^3/uL (1.6-8.6); Neutrophils % (auto) 78.1 % (37.0-80.0); Platelet Count (auto) 196 10^3/uL (140-450); Red Blood Cells 3.34 10^6/uL (4.5-5.90); Red Cell Distribution Width 14.6 % (11.8-14.3); White Blood Cell 13.4 10^3/uL (4.4-10.8)
[2024-03-28 07:41] LABS: Alanine Aminotransferase 12 U/L (7-40); Albumin 4.1 g/dL (3.2-4.8); Alkaline Phosphatase 95 U/L (46-116); Anion Gap 13 (5-15); Aspartate Aminotransferase 14 U/L (13-40); Bilirubin, Total 0.7 mg/dL (0.2-1.0); Carbon Dioxide 29 mmol/L (20-31); Potassium 3.9 mmol/L (3.5-5.1); Sodium 137 mmol/L (136-145); Total Protein 7.4 g/dL (5.7-8.2)
[2024-03-28 07:48] LABS: Chloride 95 mmol/L (98-107); Glucose 134 mg/dL (74-106)
[2024-03-28 07:49] LABS: Calcium 8.2 mg/dL (8.7-10.4)
[2024-03-28 08:21] VITALS: PULSE 85; RESP 13; O2SAT 99
[2024-03-28 08:22] LABS: BUN/Creatinine Ratio 5.6 (10.0-20.0)
[2024-03-28 08:23] LABS: Blood Urea Nitrogen 43 mg/dL (9-23)
--- NOTE | 2024-03-28 08:23 | DVHPNRES ---
Progress Note Date Seen: Mar 28, 2024 Resident Creating Document: EBONY ALLEN RESIDENT Medical Necessity Reason Pt with a Central, PICC or Fol: Yes Subjective Review of Systems Patient is 73 year male with a past medical history as described below came to the ED with the chief complaint of Fever and chills. Patient reports that during his dialysis session yesterday he developed chills and weakness, prompting EMS to be called. His O2 sat was initially noted to be low but later improved to high 90s with O2 therapy. Patient has a suprapubic catheter with dark red fluid in the bag. Patient reports he gets catheter changed every month at urology outpatient clinic. He was recently treated for a catheter infection about 3 weeks ago where he grew E.coli and pseudomonas in the urine culture which with sensitivity to ceftriaxone with which the patient was treated in hospital and sent home on Keflex for 10 days. Patient has a left forearm fistula for Dialysis. Past medical history: ESRD, HTN, T2DM, CAD, CHF Past surgical history: none reported Social history: Denies smoking, alcohol, drug use Home medications: amlodipine, protonix, carvedilol, gabapentin Review of systems Patient is seen and examined at bedside A/O X 4. mild swelling above the umbilicus which is mildly tender. Gross hematuria in leg bag attached to Pinedo catheter. Objective vital signs Vital Sign Date Time Temp Pulse Resp B/P (MAP) Pulse Ox O2 Delivery O2 Flow Rate FiO2 03/28/24 06:00 85 20 123/56 (78) 100 03/28/24 00:30 Room Air* 0 21 03/27/24 20:40 98.9 98.9 Total Intake and Output 03/27/24 03/27/24 03/28/24 15:00 23:00 07:00 Intake Total 100 ml Balance 100 ml medications Current Medications Medications Dose Ordered Sig/Pia Route Start Time Stop Time Status Last Admin Dose Admin Nitroglycerin 0.4 mg Q5MINP PRN SL 03/27/24 21:00 Morphine Sulfate 2 mg Q30M PRN IV 03/27/24 21:00 Vancomycin HCl 0 ml @ 0 mls/hr UD IV 03/27/24 21:45 UNV Gabapentin 100 mg DAILY PO 03/28/24 10:00 Lidocaine 1 patch DAILY TOP 03/28/24 10:00 Acetaminophen 650 mg Q4HP PRN PO 03/27/24 23:30 Amlodipine Besylate 10 mg DAILY PO 03/28/24 10:00 Finasteride 5 mg DAILY PO 03/28/24 10:00 Tamsulosin HCl 0.8 mg QPM PO 03/28/24 18:00 Pantoprazole Sodium 40 mg DAILY@0600 PO 03/29/24 06:00 UNV Examination Physical Examination Gen - no pallor, no icterus, no cyanosis, no clubbing, no LAD, no edema. Skin - Patients skin is warm and dry. HEENT - normocephalic, atraumatic, dry mucous membranes. Neck - full ROM, no LAD, no JVD. Pulmonary - B/L equal breath sounds heard, no wheezing. cardiovascular - normal S1,S2 heard. no murmurs heard. peripheral pulses normal radial 2+, pedal 2+. capillary refill normal <2 secs. GI - soft abdomen with mild tenderness to palpation supraumbilical area. no hepatospleenomegaly. Bowel sounds normoactive Neurological - Patient is A/O X 3. Bilateral upper extremity strength 5/5, bilateral lower extremity strength 5/5, no facial droop, normal speech, no tremor,no sensory loss laboratory and microbiology Laboratory Tests 03/28/24 07:09 Test 03/28/24 07:09 Range/Units Serum Glucose 134 H 74-106 mg/dL Problem List/Assessment/Plan Problem List/Assessment/Plan Assessment and plan # Acute Hypoxic respiratory failure - on 2L O2 # Sepsis like d/t UTI # UTI likely Acute cystitis # ? catheter associated UTI # ? HD Arteriovenous fistula infection - suprapubic catheter in place - recently changed by - Urine culture pending - Blood culture pending - Left upper ext US shows Narrowing at the distal anastomosis with elevated velocity measuring 594cm/s - previous urine cultures recently show growth of pseudomonas and E.coli - on empiric treatment with Vancomycin and Zosyn # ESRD on hemodialysis - at [facility] dialysis on TTS - serum creatinine 7.62 - potassium 3.9 - nephrology consulted # Uncontrolled T2DM - recent Hba1C- 7.4% - at home on insulin lantus 15U hs and humolog 5U ACHS - started on Mild ACHS - goal blood glucose 140-180mg/dl. # Hypertensive Heart disease - on amlodipine 5mg # Peripheral neuropathy - on gabapentin Goals of care discussed with the patient for over 25 mins. Plan discussed with Plan discussed with: Patient Date of Service: Mar 28, 2024 Billing Provider: LEONIE ALBERT MD Common Visit Codes: [id number] INP/OBS CARE(HIGH) EBONY ALLEN RESIDENT Mar 28, 2024 08:23 LEONIE ALBERT MD Mar 31, 2024 09:11
[2024-03-28] MEDS: PANTOPRAZOLE 40 MG TAB PO ONE (08:34)
[2024-03-28] MEDS ORDERED: GABAPENTIN 100 MG CAP PO SCH (10:00)
[2024-03-28] MEDS: LIDOCAINE 5% TOPICAL PATCH TOP SCH (10:00)
[2024-03-28] MEDS: amLODIPine BESYLATE 5 MG TAB PO SCH (10:12)
[2024-03-28] MEDS: FINASTERIDE 5 MG TAB PO SCH (10:12)
--- NOTE | 2024-03-28 10:14 | DVH ---
CT ABDOMEN AND PELVIS WITHOUT CONTRAST CLINICAL HISTORY: INTRAABDOMINAL INFECTION. TECHNIQUE: Multiple contiguous axial images of the abdomen and pelvis without intravenous contrast. The images were reformatted degenerate coronal and sagittal reconstructions. All CT scans at this medical facility are performed using dose modulation techniques as appropriate t o a performed exam including the following:Automated exposure control was utilized; adjustment of the MA and/or KV according to patient size; and use of iterative reconstruction technique. Radiation Dose Information: CT Dose: CTDI volume is 17 mGy. Dose-length product is 936 mGy*cm Comparison: CT CT AB PEL WO CON-NO ORAL OR IV on DOS: 03/06/24 FINDINGS: Evaluation of the abdomen and pelvis is limited without intravenous contrast. Gallbladder is surgically absent. The kidneys are small and atrophic. There is no hydronephrosis. The liver, pancreas, adrenal glands, and spleen appear within normal limits. There is no gross evidence of abdominal lymphadenopathy. There is no free fluid or free air. The stomach grossly appears unremarkable. The small and large bowel loops demonstrate normal caliber . There is moderate amount of stool in the colon. The abdominal aorta and IVC appear within normal limits. Evaluation of the pelvis is limited secondary to moderate streak artifact from left hip arthroplasty. There is a suprapubic catheter in the bladder which is decompressed. The prostate gland appears prom inent in size.. There is no gross evidence of a pelvic mass. There is no obvious free fluid collecti on. Lung bases are clear. There is no acute osseous abnormality. IMPRESSION: 1. There is no acute process in the abdomen and pelvis. 2. Moderate amount of stool in the colon. 3. Prostatomegaly. 4. Small atrophic kidneys. HS:Y
--- NOTE | 2024-03-28 10:49 | DVH ---
Procedure: US LT Upper DVT Exam Date: 03/28/2024 08:30 AM History: infection Comparison Study: None available at time of dictation. I Arterio-Venous Dialysis Fistula Duplex Findings: Duplex Doppler evaluation of the AV Fistula at the left antecubital fossa region was performed inclu ding color Doppler and spectral/pulsed waveform analysis. Narrowing at the distal anastomosis with elevated velocity measuring 594. IMPRESSION: Narrowing of the distal anastomosis with elevated velocity measuring 594 centimeters/second. Vascular surgery consultation recommended. No DVT. END IMPRESSION:
[2024-03-28] MEDS ORDERED: DEXTROSE (50%) 50ML SYRG IV PRN (11:45)
[2024-03-28 12:00] VITALS: RESP 22; O2SAT 98
--- NOTE | 2024-03-28 13:03 | DVHSR ---
APPROVED REPORT EXAM: Two-dimensional and M-mode echocardiogram with Doppler and color Doppler. Blood Pressure: 126/49 mmHg INDICATION Chest Pain RISK FACTORS Height: 73, Weight: 177 DIMENSIONS LVDd5.1 (3.8-5.7cm)LA (2D)4.2 (1.9-4.0cm)Aortic Root3.7 (2.0-3.7cm) LVDs3.3 (2.5-4.0cm)LA (MM) (1.9-4.0cm)Aortic Cusp Exc2.1 (1.5-2.0cm) EF (%) 65.0 (55-70%)Rt. Atrium4.3 (1.9-4.0cm)Asc. Aorta cm Mitral Valve MitralMitral Stenosis E wave0.84m/sMV Mean GR.mmHg A wave1.07m/sMV Peak GR.mmHg E/A ratio0.82D MVAcm2 DECEL [id number] 1/2 Eptg25py IVRTmsDop MVA3.65cm2 Aortic Valve Aortic ValveAortic Stenosis V11.19m/Phillip Mean GR.6mmHg V21.62m/Phillip Peak GR.11mmHg LVOT Diameter2.2 (1.8-2.4cm)Doppler AVA2.79cm2 Pulmonic Valve V21.05m/s Tricuspid Valve TR Velocity2.58m/s [id number] Other Information Technically limited study due to body habitus. Conclusion lvef 55-60% by visual estimate left atrium enlarged normal rv function
[2024-03-28] MEDS: GABAPENTIN 100 MG CAP PO SCH (15:56)
--- NOTE | 2024-03-28 16:55 | DVHINCON2 ---
Date of service: Mar 28, [address] Shaw Reason for Consultation End-stage kidney disease History of Present Illness This is a 73-year-old male with history of end-stage kidney disease on hemodialysis, coronary artery disease, congestive heart failure, atrial fibrillation, hypertension sent to the emergency room because of chills during dialysis session. Patient also was noted to be hypoxic. Patient does have a suprapubic catheter. Being followed by Urology closely. Recently had completed a course of antibiotics for UTI. Patient being admitted for further workup. Nephrology consulted for continuation of dialysis. His dialysis days are Sunday. Past Medical History As stated above Past Surgical History Dialysis access Family History: FH: kidney failure G8 BROTHER G8 SISTER FHx: diabetes mellitus G8 BROTHER G8 SISTER FHx: hypertension G8 BROTHER G8 SISTER Social History No active history of smoking, alcohol or drug abuse Allergies: Coded Allergies: Ciprofloxacin (Verified Allergy, Unknown, 03/28/24) Codeine (Verified Allergy, Unknown, 03/06/24) upset stomach/rash Sulfa Antibiotics (Verified Allergy, Unknown, 10/01/17) Home Meds Reported Medications Insulin Glargine (Lantus) 100 Unit/Ml Inj, 20 UNIT SC QHSP, INJ 03/29/24 Pantoprazole Sodium Sesquihydr (Protonix) 40 Mg Tab, 40 MG PO DAILY, #30 TAB 03/29/24 Losartan Potassium (Losartan Potassium) 50 Mg Tab, 50 MG PO DAILY for 30 Days, MG 03/29/24 Gabapentin (Neurontin) 100 Mg Cap, 1 CAP PO TID, #90 CAP 2 Refills 03/29/24 Atorvastatin Calcium (ATORVASTATIN CALCIUM) 40 Mg Tab, 1 TAB PO DAILY, #30 TAB 5 Refills 03/29/24 Aspirin (Aspir-Low) 81 Mg Tab, 81 MG PO DAILY for 30 Days, MG 03/29/24 Finasteride (Finasteride) 5 Mg Tab, 5 MG PO DAILY for 30 Days, MG 10/01/17 Tamsulosin Hcl (Tamsulosin Hcl) 0.4 Mg Cap, 0.8 MG PO QPM for 30 Days, MG 10/01/17 Carvedilol (Coreg) 12.5 Mg Tab, 1 TAB PO BID, #180 TAB 1 Refill 10/01/17 Amlodipine Besylate (NORVASC TABLET) 5 Mg Tb, 2 TAB PO DAILY, #30 TAB 5 Refills 10/01/17 Discontinued Reported Medications Insulin Aspart Protamine & Asp (Novolog Mix 70/30 Prefill (70-30) 100 Unit/ml) 1 Inj Inj, 8 UNITS SC, INJ 10/01/17 Insulin Glargine (Lantus) 100 Unit/Ml Inj, 50 UNIT SC QHS, INJ 10/01/17 Furosemide (Lasix) 40 Mg Tab, 40 MG PO DAILY, TAB 10/01/17 Hydralazine Hcl (Hydralazine Hcl) 25 Mg Tab, 25 MG PO BID for 30 Days, MG 10/01/17 Pantoprazole Sodium (PANTOPRAZOLE SODIUM) 40 Mg Inj, 40 MG PO DAILY, INJ 10/01/17 Rosuvastatin Calcium (Crestor) 40 Mg Tab, 1 TAB PO DAILY, #30 TAB 5 Refills 10/01/17 Cholecalciferol (D3 2000) 2,000 Unit Tab, 2000 UNIT PO DAILY, TAB 10/01/17 Cholecalciferol (D3) 2,000 Unit Tab, 2000 UNIT PO, TAB 10/01/17 Gabapentin (Neurontin) 300 Mg Cap, 1 CAP PO TID, #90 CAP 3 Refills 10/01/17 Current Medications Current Medications Medications (Trade) Dose Ordered Sig/Pia Route PRN Reason Start Time Stop Time Status Last Admin Nitroglycerin (Ntrostat Sublingual) 0.4 mg Q5MINP PRN SL FOR CHEST PAIN 03/27/24 21:00 Morphine Sulfate 2 mg Q30M PRN IV FOR CHEST PAIN 03/27/24 21:00 Vancomycin HCl 0 ml @ 0 mls/hr UD IV 03/27/24 21:45 Gabapentin (Neurontin Capsule) 100 mg DAILY PO 03/28/24 10:00 03/28/24 08:28 DC Lidocaine (Lidoderm 5% Topical Patch) 1 patch DAILY TOP 03/28/24 10:00 Acetaminophen (Tylenol Tablet) 650 mg Q4HP PRN PO MODERATE PAIN (4-6 PAIN SCALE) 03/27/24 23:30 03/28/24 08:28 DC Amlodipine Besylate (Norvasc Tablet) 10 mg DAILY PO 03/28/24 10:00 03/28/24 10:12 Finasteride (Proscar Tablet) 5 mg DAILY PO 03/28/24 10:00 03/28/24 10:12 Tamsulosin HCl (Flomax) 0.8 mg QPM PO 03/28/24 18:00 Pantoprazole Sodium (Protonix Tablet) 40 mg DAILY@0600 PO 03/29/24 06:00 Gabapentin (Neurontin Capsule) 100 mg TID PO 03/28/24 14:00 03/28/24 15:56 Acetaminophen (Tylenol Tablet) 650 mg Q6HP PRN PO PAIN SCALE 1-3 OR TEMP>100.1 03/28/24 08:30 Diagnostic Test (Pha) (Accu-Chek Comfort Curve T) 1 strip ACHS 03/28/24 17:00 Insulin Human Regular (InsuLIN R) ACHS SC 03/28/24 17:00 Dextrose 50 ml UD PRN IV Blood Sugar LESS THAN 60 03/28/24 11:45 Piperacillin Sod/ Tazobactam Sod 50 ml @ 12.5 mls/hr Q8HR IV 03/28/24 22:00 Review of Systems Twelve point review of system negative except as stated in the HPI Vital Signs Vital Signs Date Time Temp Pulse Resp B/P (MAP) Pulse Ox O2 Delivery O2 Flow Rate FiO2 03/28/24 10:12 126/49 03/28/24 10:00 85 21 96 03/28/24 08:21 Nasal Cannula* 2 28 03/28/24 08:21 100.2 100.2 Physical Exam Awake alert oriented x3 HEENT colon normocephalic, no JVD Lungs: Bilateral good air entry CVS: S1, S2 regular rate rhythm Abdomen: Soft, bowel sounds present. Suprapubic catheter present CONTACT LENS FLASHING PUNCHER: No focal deficits Labs/Diagnostic Data Labs Test 03/28/24 07:57 03/28/24 07:09 03/27/24 21:48 03/27/24 21:30 Range/Units Lactic Acid Level 2.0 0.4-2.0 mmol/L White Blood Count 13.4 H 4.4-10.8 10^3/uL Red Blood Count 3.34 L 4.5-5.90 10^6/uL Hemoglobin 10.6 L 13.5-17.5 g/dL Hematocrit 31.6 #L 41.0-53.0 % Mean Corpuscular Volume 94.7 80.0-100.0 fL Mean Corpuscular Hemoglobin 31.6 28.0-32.0 pg Mean Corpuscular Hemoglobin Concent 33.4 32.0-36.0 g/dL Red Cell Distribution Width 14.6 H 11.8-14.3 % Platelet Count 196 140-450 10^3/uL Mean Platelet Volume 7.6 6.9-10.8 fL Neutrophils (%) (Auto) 78.1 37.0-80.0 % Lymphocytes (%) (Auto) 12.8 10.0-50.0 % Monocytes (%) (Auto) 8.3 0.0-12.0 % Eosinophils (%) (Auto) 0.2 0.0-7.0 % Basophils (%) (Auto) 0.6 0.0-2.0 % Neutrophils # (Auto) 10.5 H 1.6-8.6 10 ^3/uL Lymphocytes # (Auto) 1.7 0.4-5.4 10 ^3/uL Monocytes # (Auto) 1.1 0-1.3 10 ^3/uL Eosinophils # (Auto) 0 0-0.8 10 ^3/uL Basophils # (Auto) 0.1 0-0.2 10 ^3/uL Nucleated Red Blood Cells 0.0 % D-Dimer, Quantitative 0.61 H 0.0-0.49 mg/L FEU Sodium Level 137 136-145 mmol/L Potassium Level 3.9 3.5-5.1 mmol/L Chloride Level 95 L 98-107 mmol/L Carbon Dioxide Level 29 20-31 mmol/L Anion Gap 13 5-15 Blood Urea Nitrogen 43 #H 9-23 mg/dL Creatinine 7.62 H 0.700-1.30 mg/dL Glomerular Filtration Rate Calc 7 >90 mL/min BUN/Creatinine Ratio 5.6 L 10.0-20.0 Serum Glucose 134 H 74-106 mg/dL Calcium Level 8.2 L 8.7-10.4 mg/dL Total Bilirubin 0.7 0.2-1.0 mg/dL Aspartate Amino Transferase (AST) 14 13-40 U/L Alanine Aminotransferase (ALT) 12 7-40 U/L Alkaline Phosphatase 95 46-116 U/L Total Protein 7.4 5.7-8.2 g/dL Albumin 4.1 3.2-4.8 g/dL Thyroid Stimulating Hormone (TSH) 1.08 0.55-4.78 uIU/mL Plasma/Serum Blood Alcohol 4.7 <10 mg/dL Influenza Type A Antigen Negative Negative Influenza Type B Antigen Negative Negative SARS-CoV-2 Antigen (Rapid) Negative NEGATIVE Test 03/27/24 12:48 Range/Units Troponin I High Sensitivity 11 </=54 ng/L Assessment End-stage kidney disease on hemodialysis Leukocytosis History of coronary artery disease Congestive heart failure Atrial fibrillation Anemia in Chronic kidney disease Plan/Recommendation Further workup for chills as per primary. Empiric antibiotics We will continue dialysis on TTS schedule. Plan discussed with: Patient JOSEMANUEL GOMES MD Mar 28, 2024 16:55
[2024-03-28] MEDS: ACCU-CHEK COMFORT CURVE STRIP VI SCH (18:47)
[2024-03-28] MEDS: TAMSULOSIN HYDROCHLORIDE 0.4 MG CAP PO SCH (18:53)
[2024-03-28] MEDS: InsuLIN REG 1unit/0.01ml Soln (100units/ml) SC SCH (18:54)
[2024-03-28 19:40] VITALS: O2SAT 92
[2024-03-28] MEDS: ACETAMINOPHEN 325 MG TAB PO PRN (19:42)
[2024-03-28] MEDS: MORPHINE SULFATE INJ 2 MG/ml SYRG IV PRN (19:42)
[2024-03-28 21:28] VITALS: BP 133/64; PULSE 86; RESP 18; TEMP 99.1; O2SAT 99
[2024-03-28 21:30] VITALS: BP 131/64; PULSE 86; RESP 18; TEMP 99.1; O2SAT 99
[2024-03-28] MEDS: PIPERACILLIN-TAZOB 2.25GM 50 ML IV SCH (22:23)
[2024-03-28 23:38] LABS: Amphetamine Screen, Urine Pos (NEGATIVE); Cannabinoid Screen, Urine Pos (NEGATIVE)
[2024-03-28 23:40] LABS: Barbiturate Scree,Urine Neg (NEGATIVE); Benzodiazephine Screen, Urine Neg (NEGATIVE); Cocaine Screen, Urine Neg (NEGATIVE); Opiate Scree,Urine Neg (NEGATIVE); Phencyclidine Screen, Urine Neg (NEGATIVE)
[2024-03-29] VITALS (8 sets, daily range): BP systolic 98–144; BP diastolic 46–70; PULSE 69–94; RESP 16–20; TEMP 98.3–99.2; O2SAT 94–100
[2024-03-29 00:03] LABS: Urine Bacteria MANY /hpf (None Seen); Urine Blood 2+ /uL (Negative); Urine Clarity Ex.Turbid (Clear); Urine Color Dark-Brown (Yellow); Urine Mucus FEW (None Seen); Urine Protein, UAD 1+ (Negative); Urine Specific Gravity 1.032 (1.001-1.035); Urine Urobilinogen Normal (Negative); Urine WBC 751 /hpf (0 - 3); Urine WBC Clumps PRESENT /hpf (None Seen)
[2024-03-29] MEDS ORDERED: GABA100C PO (03:20)
[2024-03-29] MEDS ORDERED: ATOR40TA52 PO (03:20)
[2024-03-29] MEDS ORDERED: ASPI-543 PO (03:20)
[2024-03-29] MEDS ORDERED: PANT40TA2 PO (03:20)
[2024-03-29] MEDS ORDERED: LOSA-534 PO (03:20)
[2024-03-29] MEDS ORDERED: INSLANTI SC (03:22)
[2024-03-29] MEDS: SODIUM CHLORIDE 0.9% 500 ML IV ONE (04:00)
[2024-03-29 05:56] LABS: Basophils # (auto) 0.1 10 ^3/uL (0-0.2); Basophils % (auto) 0.8 % (0.0-2.0); Eosinophils # (auto) 0.2 10 ^3/uL (0-0.8); Eosinophils % (auto) 1.7 % (0.0-7.0); Hematocrit 29.8 % (41.0-53.0); Hemoglobin 9.8 g/dL (13.5-17.5); Lymphocytes # (auto) 1.6 10 ^3/uL (0.4-5.4); Lymphocytes % (auto) 14.5 % (10.0-50.0); Mean Corpuscular Hemoglobin 31.6 pg (28.0-32.0); Mean Corpuscular Hgb Conc. 32.8 g/dL (32.0-36.0); Mean Corpuscular Volume 96.2 fL (80.0-100.0); Monocytes # (auto) 0.9 10 ^3/uL (0-1.3); Monocytes % (auto) 8.3 % (0.0-12.0); Neutrophils # (auto) 8.3 10 ^3/uL (1.6-8.6); Neutrophils % (auto) 74.7 % (37.0-80.0); Nucleated Red Blood Cells % 0.1 %; Platelet Count (auto) 168 10^3/uL (140-450); Red Cell Distribution Width 14.6 % (11.8-14.3); White Blood Cell 11.1 10^3/uL (4.4-10.8)
[2024-03-29] MEDS: PANTOPRAZOLE 40 MG TAB PO SCH (06:14)
[2024-03-29 06:18] LABS: Alanine Aminotransferase 10 U/L (7-40); Albumin 3.6 g/dL (3.2-4.8); Alkaline Phosphatase 89 U/L (46-116); Anion Gap 14 (5-15); Aspartate Aminotransferase 14 U/L (13-40); BUN/Creatinine Ratio 6.4 (10.0-20.0); Bilirubin, Total 0.5 mg/dL (0.2-1.0); Carbon Dioxide 26 mmol/L (20-31); Glucose 86 mg/dL (74-106); Potassium 4.3 mmol/L (3.5-5.1); Sodium 137 mmol/L (136-145)
[2024-03-29 06:19] LABS: Total Protein 6.6 g/dL (5.7-8.2)
[2024-03-29 06:30] LABS: Blood Urea Nitrogen 68 mg/dL (9-23); Calcium 7.3 mg/dL (8.7-10.4); Chloride 97 mmol/L (98-107)
--- NOTE | 2024-03-29 07:59 | DVHPN2 ---
Progress Note - Dictate Date Seen: Mar 29, 2024 Medical Necessity Reason Pt with a Central, PICC or Fol: Yes Subjective No acute issues overnight vital signs Vital Sign Date Time Temp Pulse Resp B/P (MAP) Pulse Ox O2 Delivery O2 Flow Rate FiO2 03/29/24 05:00 98.8 75 17 116/58 (77) 100 98.8 03/28/24 21:30 Room Air* 0 21 Total Intake and Output 03/28/24 03/28/24 03/29/24 15:00 23:00 07:00 Intake Total 290 ml Output Total 0 ml Balance 290 ml medications Current Medications Medications Dose Ordered Sig/Pia Route Start Time Stop Time Status Last Admin Dose Admin Nitroglycerin 0.4 mg Q5MINP PRN SL 03/27/24 21:00 Morphine Sulfate 2 mg Q30M PRN IV 03/27/24 21:00 03/28/24 19:42 2 MG Vancomycin HCl 0 ml @ 0 mls/hr UD IV 03/27/24 21:45 Lidocaine 1 patch DAILY TOP 03/28/24 10:00 Amlodipine Besylate 10 mg DAILY PO 03/28/24 10:00 03/28/24 10:12 10 MG Finasteride 5 mg DAILY PO 03/28/24 10:00 03/28/24 10:12 5 MG Tamsulosin HCl 0.8 mg QPM PO 03/28/24 18:00 03/28/24 18:53 0.8 MG Pantoprazole Sodium 40 mg DAILY@0600 PO 03/29/24 06:00 03/29/24 06:14 40 MG Gabapentin 100 mg TID PO 03/28/24 14:00 03/29/24 06:14 100 MG Acetaminophen 650 mg Q6HP PRN PO 03/28/24 08:30 03/28/24 19:42 650 MG Diagnostic Test (Pha) 1 strip ACHS 03/28/24 17:00 03/29/24 06:27 1 STRIP Insulin Human Regular ACHS SC 03/28/24 17:00 03/28/24 22:52 4 UNITS Dextrose 50 ml UD PRN IV 03/28/24 11:45 Piperacillin Sod/ Tazobactam Sod 50 ml @ 12.5 mls/hr Q8HR IV 03/28/24 22:00 03/29/24 06:14 12.5 MLS/HR Amlodipine Besylate 5 mg DAILY PO 03/29/24 10:00 UNV objective Awake alert oriented x3 HEENT: Normocephalic, no JVD Lungs: Bilateral good air entry CVS: S1, S2 regular rate rhythm Abdomen: Soft, bowel sounds present. Suprapubic catheter present VIDEOTAPE RECORDING ENGINEER: No focal deficits Extremities: No edema laboratory and microbiology Laboratory Tests 03/29/24 05:00 Test 03/29/24 05:00 Range/Units Serum Glucose 86 74-106 mg/dL Problem List End-stage kidney disease on hemodialysis Leukocytosis History of coronary artery disease Congestive heart failure Atrial fibrillation Anemia in Chronic kidney disease Assessment/Plan Hemodialysis today. Plan discussed with: Patient JOSEMANUEL GOMES MD Mar 29, 2024 07:59
[2024-03-29] MEDS ORDERED: SODIUM CHL 0.9% 1000 ML BAG XX ONE (08:00)
[2024-03-29 08:06] LABS: PSA Free 5.27 ng/mL; Prostate Specific Antigen 10.9 ng/mL (0.0-4.0)
--- NOTE | 2024-03-29 14:24 | DVHPNRES ---
Progress Note Date Seen: Mar 29, 2024 Resident Creating Document: MALINDA HANCOCK RESIDENT Medical Necessity Reason Pt with a Central, PICC or Fol: Yes Subjective Review of Systems Patient was seen and examined at bedside. She stated feeling well denied any chest pain, shortness of breath, he only complains of [id number] suprapubic pain, dysuria. Urine consult is still pending. Hemodialysis will be performed today. Patient is tolerating diet. Objective vital signs Vital Sign Date Time Temp Pulse Resp B/P (MAP) Pulse Ox O2 Delivery O2 Flow Rate FiO2 03/29/24 13:00 98.4 74 18 136/70 (92) 99 98.4 03/29/24 08:00 Nasal Cannula* 3 32 Total Intake and Output 03/28/24 03/28/24 03/29/24 15:00 23:00 07:00 Intake Total 290 ml Output Total 0 ml Balance 290 ml medications Current Medications Medications Dose Ordered Sig/Pia Route Start Time Stop Time Status Last Admin Dose Admin Nitroglycerin 0.4 mg Q5MINP PRN SL 03/27/24 21:00 Morphine Sulfate 2 mg Q30M PRN IV 03/27/24 21:00 03/28/24 19:42 2 MG Vancomycin HCl 0 ml @ 0 mls/hr UD IV 03/27/24 21:45 Lidocaine 1 patch DAILY TOP 03/28/24 10:00 Finasteride 5 mg DAILY PO 03/28/24 10:00 03/28/24 10:12 5 MG Tamsulosin HCl 0.8 mg QPM PO 03/28/24 18:00 03/28/24 18:53 0.8 MG Pantoprazole Sodium 40 mg DAILY@0600 PO 03/29/24 06:00 03/29/24 06:14 40 MG Gabapentin 100 mg TID PO 03/28/24 14:00 03/29/24 06:14 100 MG Acetaminophen 650 mg Q6HP PRN PO 03/28/24 08:30 03/28/24 19:42 650 MG Diagnostic Test (Pha) 1 strip ACHS 03/28/24 17:00 03/29/24 06:27 1 STRIP Insulin Human Regular ACHS SC 03/28/24 17:00 03/29/24 11:30 3 UNITS Dextrose 50 ml UD PRN IV 03/28/24 11:45 Piperacillin Sod/ Tazobactam Sod 50 ml @ 12.5 mls/hr Q8HR IV 03/28/24 22:00 03/29/24 06:14 12.5 MLS/HR Amlodipine Besylate 5 mg DAILY PO 03/29/24 10:00 Examination Gen - no pallor, no icterus, no cyanosis, no clubbing, no LAD, no edema. Skin - Patients skin is warm and dry. HEENT - normocephalic, atraumatic, dry mucous membranes. Neck - full ROM, no LAD, no JVD. Pulmonary - B/L equal breath sounds heard, no wheezing. cardiovascular - normal S1,S2 heard. no murmurs heard. peripheral pulses normal radial 2+, pedal 2+. capillary refill normal <2 secs. GI - soft abdomen with mild tenderness to palpation supraumbilical area. no hepatospleenomegaly. Bowel sounds normoactive Neurological - Patient is A/O X 3. Bilateral upper extremity strength 5/5, bilateral lower extremity strength 5/5, no facial droop, normal speech, no tremor,no sensory loss laboratory and microbiology Laboratory Tests 03/29/24 05:00 Test 03/29/24 05:00 Range/Units Serum Glucose 86 74-106 mg/dL Microbiology Date/Time Source Procedure Growth Status 03/28/24 23:05 Nose MRSA Screen - Final Complete 03/27/24 21:48 Blood Blood Culture - Preliminary NO GROWTH AFTER 24 HOURS OF INCUBATION. Resulted Labs and/or images reviewed: Labs reviewed by me, Image(s) reviewed by me Problem List/Assessment/Plan Problem List/Assessment/Plan # Acute Hypoxic respiratory failure - on 2L O2 # Sepsis like d/t UTI # UTI likely Acute cystitis # ? catheter associated UTI # ? HD Arteriovenous fistula infection - suprapubic catheter in place - recently changed by - Urine culture pending - Blood culture pending - Left upper ext US shows Narrowing at the distal anastomosis with elevated velocity measuring 594cm/s - previous urine cultures recently show growth of pseudomonas and E.coli - on empiric treatment with Vancomycin and Zosyn # ESRD on hemodialysis - at [facility] dialysis on TTS - serum creatinine 7.62 - potassium 3.9 - nephrology consulted # Uncontrolled T2DM - recent Hba1C- 7.4% - at home on insulin lantus 15U hs and humolog 5U ACHS - started on Mild ACHS - goal blood glucose 140-180mg/dl. # Hypertensive Heart disease - on amlodipine 5mg # Peripheral neuropathy - on gabapentin Goals of care discussed with the patient for over 25 mins. Plan discussed with Dr. Green Plan discussed with: Patient, Other (RN) My Orders My Orders Orders - MALINDA HANCOCK Procedure Category Date Status Time Basic Metabolic Panel LAB 03/30/24 Verified 04:00 Date of Service: Mar 29, 2024 Billing Provider: MARIE GREEN MD Common Visit Codes: [id number] INP/OBS CARE(HIGH) MALINDA HANCOCK RESIDENT Mar 29, 2024 14:24 MARIE GREEN MD Mar 29, 2024 20:12
[2024-03-29] MEDS: amLODIPine BESYLATE 5 MG TAB PO SCH (15:23)
[2024-03-29] MEDS: VANCOMYCIN 1GM/250ML KIT 250 ML IV ONE (20:40)
[2024-03-29] MEDS: EPOETIN ALFA-EPBX 4,000 UNIT/ML VIAL SC ONE (21:06)
[2024-03-30] VITALS (7 sets, daily range): BP systolic 119–140; BP diastolic 55–66; PULSE 74–84; RESP 18–20; TEMP 97.6–99.6; O2SAT 92–98
[2024-03-30 05:55] LABS: Basophils # (auto) 0 10 ^3/uL (0-0.2); Basophils % (auto) 0.5 % (0.0-2.0); Eosinophils # (auto) 0.2 10 ^3/uL (0-0.8); Eosinophils % (auto) 2.3 % (0.0-7.0); Hematocrit 29.1 % (41.0-53.0); Hemoglobin 9.6 g/dL (13.5-17.5); Lymphocytes # (auto) 1.2 10 ^3/uL (0.4-5.4); Lymphocytes % (auto) 17.2 % (10.0-50.0); Mean Corpuscular Hemoglobin 31.3 pg (28.0-32.0); Mean Corpuscular Hgb Conc. 32.8 g/dL (32.0-36.0); Mean Corpuscular Volume 95.5 fL (80.0-100.0); Monocytes % (auto) 14.4 % (0.0-12.0); Neutrophils # (auto) 4.4 10 ^3/uL (1.6-8.6); Neutrophils % (auto) 65.6 % (37.0-80.0); Nucleated Red Blood Cells % 0.1 %; Platelet Count (auto) 173 10^3/uL (140-450); Red Blood Cells 3.05 10^6/uL (4.5-5.90); Red Cell Distribution Width 14.4 % (11.8-14.3); White Blood Cell 6.7 10^3/uL (4.4-10.8)
[2024-03-30 06:06] LABS: Anion Gap 14 (5-15); Carbon Dioxide 27 mmol/L (20-31); Potassium 3.9 mmol/L (3.5-5.1); Sodium 139 mmol/L (136-145)
[2024-03-30 06:12] LABS: BUN/Creatinine Ratio 5.7 (10.0-20.0)
[2024-03-30 06:17] LABS: Blood Urea Nitrogen 44 mg/dL (9-23); Calcium 8.1 mg/dL (8.7-10.4); Chloride 98 mmol/L (98-107); Glucose 109 mg/dL (74-106)
[2024-03-30] MEDS: FUROSEMIDE 40 MG TAB PO SCH (11:20)
--- NOTE | 2024-03-30 13:58 | DVHPN2 ---
Progress Note - Dictate Date Seen: Mar 30, 2024 Medical Necessity Reason Pt with a Central, PICC or Fol: Yes Subjective No acute issues overnight Patient was dialyzed yesterday. Complaining of dysuria vital signs Vital Sign Date Time Temp Pulse Resp B/P (MAP) Pulse Ox O2 Delivery O2 Flow Rate FiO2 03/30/24 13:00 97.7 76 18 120/60 (80) 97 97.7 03/29/24 20:00 Room Air* 0 21 Total Intake and Output 03/29/24 03/29/24 03/30/24 15:00 23:00 07:00 Intake Total 900 ml 675 ml Output Total 0 ml Balance 900 ml 675 ml medications Current Medications Medications Dose Ordered Sig/Pia Route Start Time Stop Time Status Last Admin Dose Admin Nitroglycerin 0.4 mg Q5MINP PRN SL 03/27/24 21:00 Morphine Sulfate 2 mg Q30M PRN IV 03/27/24 21:00 03/28/24 19:42 2 MG Vancomycin HCl 0 ml @ 0 mls/hr UD IV 03/27/24 21:45 Lidocaine 1 patch DAILY TOP 03/28/24 10:00 Finasteride 5 mg DAILY PO 03/28/24 10:00 03/30/24 09:28 5 MG Tamsulosin HCl 0.8 mg QPM PO 03/28/24 18:00 03/29/24 17:50 0.8 MG Pantoprazole Sodium 40 mg DAILY@0600 PO 03/29/24 06:00 03/30/24 06:08 40 MG Gabapentin 100 mg TID PO 03/28/24 14:00 03/30/24 06:08 100 MG Acetaminophen 650 mg Q6HP PRN PO 03/28/24 08:30 03/30/24 09:34 650 MG Diagnostic Test (Pha) 1 strip ACHS 03/28/24 17:00 03/30/24 12:43 1 STRIP Insulin Human Regular ACHS SC 03/28/24 17:00 03/30/24 12:46 8 UNITS Dextrose 50 ml UD PRN IV 03/28/24 11:45 Piperacillin Sod/ Tazobactam Sod 50 ml @ 12.5 mls/hr Q8HR IV 03/28/24 22:00 03/30/24 06:08 12.5 MLS/HR Amlodipine Besylate 5 mg DAILY PO 03/29/24 10:00 03/30/24 09:35 5 MG Furosemide 40 mg DAILY PO 03/30/24 10:00 03/30/24 11:20 40 MG Docusate Sodium 100 mg BID PO 03/30/24 22:00 objective Awake alert oriented x3 HEENT: Normocephalic, no JVD Lungs: Bilateral good air entry CVS: S1, S2 regular rate rhythm Abdomen: Soft, bowel sounds present. Suprapubic catheter present SNUFF MAKER: No focal deficits Extremities: No edema laboratory and microbiology Laboratory Tests 03/30/24 05:20 Test 03/30/24 05:20 Range/Units Serum Glucose 109 H 74-106 mg/dL Problem List End-stage kidney disease on hemodialysis Leukocytosis History of coronary artery disease Congestive heart failure Atrial fibrillation Anemia in Chronic kidney disease Assessment/Plan Hemodialysis on TTS schedule. Await Urology evaluation. Cultures have been negative so far. Plan discussed with: Patient JOSEMANUEL GOMES MD Mar 30, 2024 13:58
[2024-03-30] MEDS ORDERED: CEFD300C2 PO (15:40)
[2024-03-30] MEDS: LACTULOSE 20Gm/30ML SOLN PO ONE (15:48)
[2024-03-30] MEDS: DOCUSATE SOD 100 MG CAP PO ONE (15:49)
--- NOTE | 2024-03-30 16:53 | DVHDSRES ---
Discharge Summary Date of Admission Resident Creating Document: EBONY ALLEN RESIDENT Mar 27, 2024 at 20:56 Date of Discharge: Mar 30, 2024 Admitting Diagnosis # Possible infection associated with suprapubic catheter # Possible catheter associated UTI # anemia Of chronic disease # End-stage renal disease on hemodialysis # Diabetes mellitus # known AFIB # existing suprapubic catheter # history of essential hypertension # vitamin-D def # Chronic low back pain # Known history of BPH Wounds: no wounds Labs/Diagnostic Data: Laboratory Results Test 03/30/24 12:38 03/30/24 05:20 03/29/24 05:00 03/28/24 23:05 POC Glucose 339 mg/dl (70-106) White Blood Count 6.7 10^3/uL (4.4-10.8) Red Blood Count 3.05 10^6/uL (4.5-5.90) Hemoglobin 9.6 g/dL (13.5-17.5) Hematocrit 29.1 % (41.0-53.0) Mean Corpuscular Volume 95.5 fL (80.0-100.0) Mean Corpuscular Hemoglobin 31.3 pg (28.0-32.0) Mean Corpuscular Hemoglobin Concent 32.8 g/dL (32.0-36.0) Red Cell Distribution Width 14.4 % (11.8-14.3) Platelet Count 173 10^3/uL (140-450) Mean Platelet Volume 7.8 fL (6.9-10.8) Neutrophils (%) (Auto) 65.6 % (37.0-80.0) Lymphocytes (%) (Auto) 17.2 % (10.0-50.0) Monocytes (%) (Auto) 14.4 % (0.0-12.0) Eosinophils (%) (Auto) 2.3 % (0.0-7.0) Basophils (%) (Auto) 0.5 % (0.0-2.0) Neutrophils # (Auto) 4.4 10 ^3/uL (1.6-8.6) Lymphocytes # (Auto) 1.2 10 ^3/uL (0.4-5.4) Monocytes # (Auto) 1.0 10 ^3/uL (0-1.3) Eosinophils # (Auto) 0.2 10 ^3/uL (0-0.8) Basophils # (Auto) 0 10 ^3/uL (0-0.2) Nucleated Red Blood Cells 0.1 % Sodium Level 139 mmol/L (136-145) Potassium Level 3.9 mmol/L (3.5-5.1) Chloride Level 98 mmol/L (98-107) Carbon Dioxide Level 27 mmol/L (20-31) Anion Gap 14 (5-15) Blood Urea Nitrogen 44 mg/dL (9-23) Creatinine 7.67 mg/dL (0.700-1.30) Glomerular Filtration Rate Calc 7 mL/min (>90) BUN/Creatinine Ratio 5.7 (10.0-20.0) Serum Glucose 109 mg/dL (74-106) Calcium Level 8.1 mg/dL (8.7-10.4) Random Vancomycin Level 29.3 ug/mL (5-10) Total Bilirubin 0.5 mg/dL (0.2-1.0) Aspartate Amino Transferase (AST) 14 U/L (13-40) Alanine Aminotransferase (ALT) 10 U/L (7-40) Alkaline Phosphatase 89 U/L (46-116) Total Protein 6.6 g/dL (5.7-8.2) Albumin 3.6 g/dL (3.2-4.8) Urine Color Dark-brown (Yellow) Urine Clarity Ex.turbid (Clear) Urine pH 7.0 (5.0-9.0) Urine Specific [facility] 1.032 (1.001-1.035) Urine Protein 1+ (Negative) Urine Ketones Negative (Negative) Urine Blood 2+ /uL (Negative) Urine Nitrite Negative (Negative) Urine Bilirubin Negative (Negative) Urine Urobilinogen Normal mg/dL (Negative) Urine Leukocyte Esterase 2+ /uL (Negative) Urine RBC 563 /hpf (0 - 3) Urine WBC 751 /hpf (0 - 3) Urine WBC Clumps Present /hpf (None Seen) Urine Squamous Epithelial Cells None seen /hpf (<5) Urine Bacteria Many /hpf (None Seen) Urine Mucus Few (None Seen) Urine Glucose Normal mg/dL (Normal) Urine Opiates Screen Neg (NEGATIVE) Urine Fentanyl Screen Neg (NEGATIVE) Urine Barbiturates Screen Neg (NEGATIVE) Urine Phencyclidine Screen Neg (NEGATIVE) Urine Amphetamines Screen Pos (NEGATIVE) Urine Benzodiazepines Screen Neg (NEGATIVE) Urine Cocaine Screen Neg (NEGATIVE) Urine Cannabinoids Screen Pos (NEGATIVE) Test 03/28/24 07:57 03/28/24 07:09 03/27/24 21:48 03/27/24 21:30 Lactic Acid Level 2.0 mmol/L (0.4-2.0) D-Dimer, Quantitative 0.61 mg/L FEU (0.0-0.49) Free Prostate Specific Antigen 5.27 ng/mL (N/A) Percent Free Prostate Specific Ag 48.3 % (.) Prostate Specific Antigen Total 10.9 ng/mL (0.0-4.0) Thyroid Stimulating Hormone (TSH) 1.08 uIU/mL (0.55-4.78) Plasma/Serum Blood Alcohol 4.7 mg/dL (<10) Influenza Type A Antigen Negative (Negative) Influenza Type B Antigen Negative (Negative) SARS-CoV-2 Antigen (Rapid) Negative (NEGATIVE) Test 03/27/24 12:48 Troponin I High Sensitivity 11 ng/L (</=54) Other Laboratory Tests 03/30/24 05:20 Brief Hx & Hospital Course: HPI Patient is 73 year male with a past medical history as described below came to the ED with the chief complaint of Fever and chills. Patient reports that during his dialysis session yesterday he developed chills and weakness, prompting EMS to be called. His O2 sat was initially noted to be low but later improved to high 90s with O2 therapy. Patient has a suprapubic catheter with dark red fluid in the bag. Patient reports he gets catheter changed every month at urology outpatient clinic. He was recently treated for a catheter infection about 3 weeks ago where he grew E.coli and pseudomonas in the urine culture which with sensitivity to ceftriaxone with which the patient was treated in hospital and sent home on Keflex for 10 days. Patient has a left forearm fistula for Dialysis. Past medical history: ESRD, HTN, T2DM, CAD, CHF Past surgical history: none reported Social history: Denies smoking, alcohol, drug use Home medications: amlodipine, protonix, carvedilol, gabapentin Hospital course Patient on admission had fever, elevated WBC and urinalysis showing elevated urine WBC with many bacteria, patient likely had sepsis due to the underlying UTI and was suspected to have soft tissue infection following which he was started on dialysis dose of zosyn and vancomycin was started as per pharmacy. CT abdomen and pelvis without contrast was done which showed no acute process in the abdomen and pelvis, prostatomegaly and small atrophic kidneys. Blood cultures after 48hrs showed no growth. Patient underwent dialysis in the hospital with 3L of fluid removed. Over the course of stay, White cell count decreased to within the normal limits and patient did not have fever, and the urine in the bag attached to suprapubic catheter cleared up and did not have hematuria. Patient stable and discharged to home on oral antibiotics for 10 days. Discharge plan Follow up in the discharge clinic in one week Follow up with urology in 1 week. Follow up at the [facility] as scheduled on TTS Medications: Advised to take 1/2 dose of carvedilol at home, continue with amlodipine prescribed cefdinir 300mg bid for 10 days. Consults/Reason for consult Nephrology consult d/t ESRD Operations or Procedures Echocardiogram shows lvef 55-60% by visual estimate left atrium enlarged normal rv function Left upper ext. US duplex Narrowing of the distal anastomosis with elevated velocity measuring 594 centimeters/second. CT Abdomen and pelvis without contrast FINDINGS: Gallbladder is surgically absent. The kidneys are small and atrophic. There is no hydronephrosis. The liver, pancreas, adrenal glands, and spleen appear within normal limits. There is no gross evidence of abdominal lymphadenopathy. There is no free fluid or free air. The stomach grossly appears unremarkable. The small and large bowel loops demonstrate normal caliber. There is moderate amount of stool in the colon. The abdominal aorta and IVC appear within normal limits. Evaluation of the pelvis is limited secondary to moderate streak artifact from left hip arthroplasty. There is a suprapubic catheter in the bladder which is decompressed. The prostate gland appears prominent in size.. There is no gross evidence of a pelvic mass. There is no obvious free fluid collection. Lung bases are clear. There is no acute osseous abnormality. IMPRESSION: 1. There is no acute process in the abdomen and pelvis. 2. Moderate amount of stool in the colon. 3. Prostatomegaly. 4. Small atrophic kidneys. Condition at Discharge: Good Final Diagnosis/Problems List # Acute Hypoxic respiratory failure # Sepsis like d/t UTI # UTI likely Acute cystitis # ? catheter associated UTI # ? HD Arteriovenous fistula infection # ESRD on hemodialysis # Uncontrolled T2DM # Hypertensive Heart disease # Peripheral neuropathy Discharge Disposition: Home Discharge Instruct/Medications Diet: Renal Activity: No Restrictions, As Tolerated Follow Up/Referral: Follow up in the discharge clinic in one week Follow up with urology in 1 week. Follow up at the [facility] as scheduled on TTS Medications: as per EMR Discharge Statement: "Patient was advised to return to the ER or call 911 if any headaches, dizziness, shortness of breath, chest pain, abdominal pain, bleeding, fevers, or worsening of medical condition. Patient was counseled about treatment plan, medications, possible side effects, patientverbalized understanding. All questions were answered to the best of my ability. This discharge took greater then 30 minutes in planning, reviewing documentation, counseling the patient, and discussing with other team members." ASSESSMENT ASSESSMENT Assessment # Acute Hypoxic respiratory failure # Sepsis like d/t UTI # UTI likely Acute cystitis # ? catheter associated UTI # ? HD Arteriovenous fistula infection # ESRD on hemodialysis # Uncontrolled T2DM # Hypertensive Heart disease # Peripheral neuropathy Date of Service: Mar 30, 2024 Billing Provider: MARIE GREEN MD Common Visit Codes: 57381-HYK/OBS DISCH DAY >30min EBONY ALLEN RESIDENT Mar 30, 2024 16:53 MARIE GREEN MD Mar 30, 2024 23:50
[2024-03-30] MEDS ORDERED: DOCUSATE SOD 100 MG CAP PO SCH (22:00)
[2024-03-31 09:30] LABS: Hepatitis B Surface Antigen Negative (Negative)
[2024-03-31 09:53] LABS: Hepatitis A Ab IgM Negative; Hepatitis B Core IgM Negative (Negative); Hepatitis C Antibody Negative (Negative)
== END 2024-03-30 18:00 | disposition home or self-care (01) | DRG 314 ==
LOC: EDBD 12:37 → EDUNIT# 12:37 → ER 12:37 → TELE 20:56 → TELE-EAST 03-28 21:28
PROVIDERS: ADMIT Student in an Organized Health Care Education/Training Program; ATTEND Emergency Medicine
PROC: 5A1D70Z Performance of Urinary Filtration, Intermittent, Less than 6 Hours Per Day (ICD-10-PCS; principal; 2024-03-29)
DX: T82.7XXA Infection and inflammatory reaction due to other cardiac and vascular devices, implants and grafts, initial encounter (principal); A41.9 Sepsis, unspecified organism; J96.01 Acute respiratory failure with hypoxia; N18.6 End stage renal disease; T83.518A Infection and inflammatory reaction due to other urinary catheter, initial encounter; I13.2 Hypertensive heart and chronic kidney disease with heart failure and with stage 5 chronic kidney disease, or end stage renal disease; N30.00 Acute cystitis without hematuria; D63.1 Anemia in chronic kidney disease; E11.22 Type 2 diabetes mellitus with diabetic chronic kidney disease; E11.65 Type 2 diabetes mellitus with hyperglycemia; Z20.822 Contact with and (suspected) exposure to COVID-19; I44.4 Left anterior fascicular block; E55.9 Vitamin D deficiency, unspecified; I25.10 Atherosclerotic heart disease of native coronary artery without angina pectoris; N40.0 Benign prostatic hyperplasia without lower urinary tract symptoms; E11.42 Type 2 diabetes mellitus with diabetic polyneuropathy; I48.91 Unspecified atrial fibrillation; I50.9 Heart failure, unspecified; Y83.8 Other surgical procedures as the cause of abnormal reaction of the patient, or of later complication, without mention of misadventure at the time of the procedure; Z88.5 Allergy status to narcotic agent; Z88.2 Allergy status to sulfonamides; Z79.899 Other long term (current) drug therapy; Z99.2 Dependence on renal dialysis; Z83.3 Family history of diabetes mellitus; Z82.49 Family history of ischemic heart disease and other diseases of the circulatory system; Z79.4 Long term (current) use of insulin; Z90.49 Acquired absence of other specified parts of digestive tract; Y92.89 Other specified places as the place of occurrence of the external cause
CPT/HCPCS: 36415; 71045; 74176; 80048; 80053; 80074; 80202; 80307; 80320; 81001; 82565; 82962; 83605; 84154; 84443; 84484; 85025; 85379; 87040; 87081; 87426; 87804; 90935; 93005; 93306; 93971; 96365; 99291; G0378; J1815; J2543